=== PATIENT | male | born 1960 | race Caucasian/White ===

== ENCOUNTER 2021-06-03 07:34 | Outpatient (REF) | payer OTHER, SELFPAY ==
[2021-06-03 08:10] LABS: MANUAL DIFF FLAG NO
[2021-06-03 08:14] LABS: Basophils Absolute Auto 0.1 X10*3/uL (0.0-0.2); Eosinophils Absolute Auto 0.2 X10*3/uL (0.0-0.4); Eosinophils Percent Auto 3.3 % (0-4); Hematocrit 45.5 % (42-52); Hemoglobin 15.6 g/dl (14.0-18.0); Imm Gran Abs Auto 0.03 X10*3/uL (0.00-0.03); Imm Gran Pct Auto 0.5 % (0.0-0.4); Lymphocytes Absolute Auto 2.3 X10*3/uL (1.2-4.9); Lymphocytes Percent Auto 35.8 % (20-40); Mean Corpuscular HGB Conc 34.3 g/dl (31.0-36.0); Mean Corpuscular Hemoglobin 28.3 pg (27.0-33.0); Mean Corpuscular Volume 82.4 fL (80-98); Mean Platelet Volume 9.6 fL (9.4-12.4); Monocytes Absolute Auto 0.5 X10*3/uL (0.1-1.2); Monocytes Percent Auto 8.2 % (2-11); Neutrophils Absolute Auto 3.2 X10*3/uL (2.0-8.3); Neutrophils Percent Auto 51.2 % (45-73); Platelet Count 199 X10*3/uL (160-400); Red Blood Count 5.52 X10*6/uL (4.60-5.80); Red Cell Distribution Width 13.4 % (11.0-16.0); White Blood Count 6.3 X10*3/uL (4.8-10.8)
[2021-06-03 08:15] LABS: Glucose Urine UA 100 MG/DL (NEG); Leukocyte Esterase Urine NEG (NEG); Nitrite Urine NEG (NEG); PH 5.5 (5.0-8.0); Specific Gravity - Urine 1.025 (1.005-1.025); Urine Blood NEG (NEG); Urine Ketones NEG (NEG); Urine Protein NEG (NEG-TRACE)
[2021-06-03 08:19] LABS: Appearance Urine CLEAR; Color Urine YELLOW
[2021-06-03 08:38] LABS: Alanine Aminotransferase 18 U/L (0-40); Albumin Level 4.3 g/dL (3.5-5.0); Alkaline Phosphatase 78 U/L (39-117); Anion Gap 12 (12-20); Aspartate Amino Transferase 26 U/L (5-37); Bilirubin Total 0.7 mg/dL (0.0-1.0); Blood Urea Nitrogen 13 mg/dL (9-16); Calcium 9.3 mg/dL (8.4-10.2); Carbon Dioxide 28 mmol/L (22-29); Chloride 101 mmol/L (96-108); Cholesterol 176 mg/dL; Estimated Glomerular Filt Rate > 60; Glucose Fasting 218 mg/dL (60-99); HDL Cholesterol 30 mg/dL; LDL Cholesterol Calculated 101 mg/dl; Potassium 4.6 mmol/L (3.3-5.1); Sodium 136 mmol/L (135-145); Total Protein 6.9 g/dL (6.5-8.0); Triglycerides 225 mg/dL
[2021-06-03 08:43] LABS: Estimated Average Glucose 223 mg/dL; Hemoglobin A1c % 9.4 %
[2021-06-03 08:58] LABS: TSH reflex Free T4 1.28 uIU/mL (0.32-4.0)
== END 2021-06-03 07:35 | disposition home or self-care (01) ==
LOC: HO.LAB 07:34
PROVIDERS: PCP Internal Medicine; Visit Provider Internal Medicine
DX: I10 Essential (primary) hypertension (principal); E66.9 Obesity, unspecified; E78.5 Hyperlipidemia, unspecified; R73.01 Impaired fasting glucose
CPT/HCPCS: 36415; 80053; 80061; 81003; 83036; 84443; 85025

== ENCOUNTER 2021-11-10 09:26 | Outpatient (REF) | payer OTHER, SELFPAY ==
[2021-11-10 12:27] LABS: MANUAL DIFF FLAG NO
[2021-11-10 12:29] LABS: Basophils Absolute Auto 0.1 X10*3/uL (0.0-0.2); Basophils Percent Auto 0.9 % (0-2); Eosinophils Absolute Auto 0.5 X10*3/uL (0.0-0.4); Eosinophils Percent Auto 6.2 % (0-4); Hematocrit 47.1 % (42.0-52.0); Hemoglobin 16.4 g/dl (14.0-18.0); Imm Gran Abs Auto 0.05 X10*3/uL (0.00-0.03); Imm Gran Pct Auto 0.6 % (0.0-0.4); Lymphocytes Absolute Auto 2.8 X10*3/uL (1.2-4.9); Lymphocytes Percent Auto 34.7 % (20-40); Mean Corpuscular HGB Conc 34.8 g/dl (31.0-36.0); Mean Corpuscular Hemoglobin 28.6 pg (27.0-33.0); Mean Corpuscular Volume 82.2 fL (80.0-98.0); Mean Platelet Volume 10.1 fL (9.4-12.4); Monocytes Absolute Auto 0.6 X10*3/uL (0.1-1.2); Monocytes Percent Auto 7.6 % (2-11); Platelet Count 227 X10*3/uL (160-400); Red Blood Count 5.73 X10*6/uL (4.60-5.80); Red Cell Distribution Width 13.1 % (11.0-16.0); White Blood Count 7.9 X10*3/uL (4.8-10.8)
[2021-11-10 12:40] LABS: Estimated Average Glucose 203 mg/dL; Hemoglobin A1c % 8.7 %
[2021-11-10 12:41] LABS: Appearance Urine CLEAR; Color Urine YELLOW; Glucose Urine UA NEG (NEG); Leukocyte Esterase Urine NEG (NEG); Nitrite Urine NEG (NEG); PH 6.5 (5.0-8.0); Urine Blood NEG (NEG); Urine Ketones NEG (NEG); Urine Protein NEG (NEG-TRACE)
[2021-11-10 12:46] LABS: Alanine Aminotransferase 25 U/L (0-40); Albumin Level 4.5 g/dL (3.5-5.0); Alkaline Phosphatase 72 U/L (39-117); Anion Gap 11 (12-20); Aspartate Amino Transferase 24 U/L (5-37); Bilirubin Total 0.7 mg/dL (0.0-1.0); Blood Urea Nitrogen 14 mg/dL (9-16); Calcium 9.9 mg/dL (8.4-10.2); Carbon Dioxide 30 mmol/L (22-29); Chloride 97 mmol/L (96-108); Cholesterol 192 mg/dL; Estimated Glomerular Filt Rate > 60; Glucose Fasting 156 mg/dL (60-99); HDL Cholesterol 35 mg/dL; LDL Cholesterol Calculated 99 mg/dl; Potassium 4.3 mmol/L (3.3-5.1); Sodium 134 mmol/L (135-145); Total Protein 7.3 g/dL (6.5-8.0); Triglycerides 290 mg/dL
[2021-11-10 12:55] LABS: Creatinine Urine 43.11 mg/dL; Microalbum/Creatinine Ratio Ur 13.9 ug/mg cr
[2021-11-10 13:07] LABS: TSH reflex Free T4 2.32 uIU/mL (0.32-4.0)
== END 2021-11-10 09:27 | disposition home or self-care (01) ==
LOC: HO.HMGCLDS 09:26
PROVIDERS: PCP Internal Medicine; Visit Provider Internal Medicine
DX: E78.00 Pure hypercholesterolemia, unspecified (principal); E11.9 Type 2 diabetes mellitus without complications; I10 Essential (primary) hypertension
CPT/HCPCS: 36415; 80053; 80061; 81003; 82043; 83036; 84443; 85025

== ENCOUNTER 2022-03-07 09:50 | Outpatient (REF) | payer OTHER, SELFPAY ==
[2022-03-07 11:34] LABS: Appearance Urine CLEAR; Color Urine YELLOW; Glucose Urine UA NEG (NEG); Leukocyte Esterase Urine NEG (NEG); Nitrite Urine NEG (NEG); PH 5.5 (5.0-8.0); Urine Blood NEG (NEG); Urine Ketones NEG (NEG); Urine Protein NEG (NEG-TRACE)
[2022-03-07 11:35] LABS: MANUAL DIFF FLAG NO
[2022-03-07 11:55] LABS: Estimated Average Glucose 235 mg/dL; Hemoglobin A1c % 9.8 %
[2022-03-07 11:56] LABS: Basophils Absolute Auto 0.1 X10*3/uL (0.0-0.2); Basophils Percent Auto 0.8 % (0-2); Eosinophils Absolute Auto 0.4 X10*3/uL (0.0-0.4); Eosinophils Percent Auto 5.4 % (0-4); Hematocrit 46.6 % (42.0-52.0); Hemoglobin 16.1 g/dl (14.0-18.0); Imm Gran Abs Auto 0.03 X10*3/uL (0.00-0.03); Imm Gran Pct Auto 0.4 % (0.0-0.4); Lymphocytes Absolute Auto 2.7 X10*3/uL (1.2-4.9); Lymphocytes Percent Auto 36.5 % (20-40); Mean Corpuscular HGB Conc 34.5 g/dl (31.0-36.0); Mean Corpuscular Volume 81.2 fL (80.0-98.0); Monocytes Absolute Auto 0.7 X10*3/uL (0.1-1.2); Monocytes Percent Auto 8.7 % (2-11); Neutrophils Absolute Auto 3.6 x10*3/uL (2.0-8.3); Neutrophils Percent Auto 48.2 % (45-73); Platelet Count 245 X10*3/uL (160-400); Red Blood Count 5.74 X10*6/uL (4.60-5.80); Red Cell Distribution Width 13.4 % (11.0-16.0); White Blood Count 7.5 X10*3/uL (4.8-10.8)
[2022-03-07 12:15] LABS: TSH reflex Free T4 2.27 uIU/mL (0.32-4.0); Vitamin D 25-OH Total 29.9 ng/mL (>30)
[2022-03-07 12:19] LABS: Alanine Aminotransferase 21 U/L (0-40); Albumin Level 4.2 g/dL (3.5-5.0); Alkaline Phosphatase 74 U/L (39-117); Anion Gap 13 (12-20); Aspartate Amino Transferase 24 U/L (5-37); Bilirubin Total 0.7 mg/dL (0.0-1.0); Blood Urea Nitrogen 19 mg/dL (9-16); Calcium 9.6 mg/dL (8.4-10.2); Carbon Dioxide 26 mmol/L (22-29); Chloride 98 mmol/L (96-108); Cholesterol 187 mg/dL; Estimated Glomerular Filt Rate > 60; Glucose Fasting 200 mg/dL (60-99); HDL Cholesterol 30 mg/dL; LDL Cholesterol Calculated 97 mg/dl; Sodium 133 mmol/L (135-145); Triglycerides 303 mg/dL
[2022-03-07 12:59] LABS: Creatinine Urine 61.85 mg/dL; Microalbum/Creatinine Ratio Ur 9.7 ug/mg cr
== END 2022-03-07 09:51 | disposition home or self-care (01) ==
LOC: HO.HMGCLDS 09:50
PROVIDERS: PCP Internal Medicine; Visit Provider Internal Medicine
DX: E55.9 Vitamin D deficiency, unspecified (principal); I10 Essential (primary) hypertension; E78.00 Pure hypercholesterolemia, unspecified; E11.9 Type 2 diabetes mellitus without complications
CPT/HCPCS: 36415; 80053; 80061; 81003; 82043; 82306; 83036; 84443; 85025

== ENCOUNTER → 2022-06-29 09:08 | Outpatient (BNVA) | payer SELFPAY | PROVIDERS: PCP Internal Medicine; Visit Provider Internal Medicine | DX: Z02.79 Encounter for issue of other medical certificate (principal) ==

== ENCOUNTER → 2022-07-10 11:04 | Outpatient (BNVA) | payer OTHER, SELFPAY | PROVIDERS: PCP Internal Medicine; Visit Provider Dietitian, Registered | DX: E11.65 Type 2 diabetes mellitus with hyperglycemia (principal); Z71.3 Dietary counseling and surveillance; Z87.891 Personal history of nicotine dependence | CPT/HCPCS: 97802 ==

== ENCOUNTER 2022-11-06 08:11 | Outpatient (REF) | payer OTHER, SELFPAY ==
[2022-11-06 11:11] LABS: MANUAL DIFF FLAG NO
[2022-11-06 11:20] LABS: Appearance Urine Clear; Color Urine Yellow; Glucose Urine UA Negative (Negative); Leukocyte Esterase Urine Negative (Negative); Nitrite Urine Negative (Negative); Urine Blood Negative (Negative); Urine Ketones Negative (Negative); Urine Protein Negative (Neg-Trace)
[2022-11-06 11:26] LABS: Basophils Absolute Auto 0.1 X10*3/uL (0.0-0.2); Basophils Percent Auto 0.9 % (0-2); Eosinophils Absolute Auto 0.3 X10*3/uL (0.0-0.4); Eosinophils Percent Auto 4.6 % (0-4); Hemoglobin 15.5 g/dl (14.0-18.0); Imm Gran Abs Auto 0.04 X10*3/uL (0.00-0.03); Imm Gran Pct Auto 0.6 % (0.0-0.4); Lymphocytes Absolute Auto 2.4 X10*3/uL (1.2-4.9); Lymphocytes Percent Auto 33.9 % (20-40); Mean Corpuscular HGB Conc 34.4 g/dl (31.0-36.0); Mean Corpuscular Hemoglobin 28.4 pg (27.0-33.0); Mean Corpuscular Volume 82.6 fL (80.0-98.0); Mean Platelet Volume 10.1 fL (9.4-12.4); Monocytes Absolute Auto 0.5 X10*3/uL (0.1-1.2); Monocytes Percent Auto 6.9 % (2-11); Neutrophils Absolute Auto 3.7 x10*3/uL (2.0-8.3); Neutrophils Percent Auto 53.1 % (45-73); Platelet Count 218 X10*3/uL (160-400); Red Blood Count 5.45 X10*6/uL (4.60-5.80); Red Cell Distribution Width 13.1 % (11.0-16.0); White Blood Count 6.9 X10*3/uL (4.8-10.8)
[2022-11-06 11:57] LABS: Estimated Average Glucose 203 mg/dL; Hemoglobin A1c % 8.7 %
[2022-11-06 12:05] LABS: Creatinine Urine 58.04 mg/dL; Microalbum/Creatinine Ratio Ur 29.2 ug/mg cr
[2022-11-06 13:21] LABS: Alanine Aminotransferase 27 U/L (0-40); Albumin Level 4.1 g/dL (3.5-5.0); Alkaline Phosphatase 70 U/L (39-117); Anion Gap 11 (12-20); Aspartate Amino Transferase 24 U/L (5-37); Bilirubin Total 0.4 mg/dL (0.0-1.0); Blood Urea Nitrogen 18 mg/dL (9-16); Calcium 9.2 mg/dL (8.4-10.2); Carbon Dioxide 27 mmol/L (22-29); Chloride 98 mmol/L (96-108); Cholesterol 170 mg/dL; Estimated Glomerular Filt Rate > 60; Glucose Fasting 201 mg/dL (60-99); HDL Cholesterol 33 mg/dL; LDL Cholesterol Calculated 76 mg/dl; Potassium 4.3 mmol/L (3.3-5.1); Sodium 132 mmol/L (135-145); Total Protein 6.7 g/dL (6.5-8.0); Triglycerides 307 mg/dL; Vitamin D 25-OH Total 26.7 ng/mL (>30)
== END 2022-11-06 08:12 | disposition home or self-care (01) ==
LOC: HO.HMGCLDS 08:11
PROVIDERS: PCP Internal Medicine; Visit Provider Internal Medicine
DX: E78.00 Pure hypercholesterolemia, unspecified (principal); E11.9 Type 2 diabetes mellitus without complications; E55.9 Vitamin D deficiency, unspecified; I10 Essential (primary) hypertension
CPT/HCPCS: 36415; 80053; 80061; 81003; 82043; 82306; 83036; 84443; 85025

== ENCOUNTER 2023-01-11 10:36 | Outpatient (REF) | payer OTHER, MEDICAID, SELFPAY ==
--- NOTE | 2023-01-11 16:48 | MHC.AU.HA1 ---
Hearing Aid Evaluation Date of Visit: 01/11/23 Historical Information: Description of Hearing: Within normal through 500 Hz steeply sloping to profound sensorineural hearing loss Summary: Jordi has reportedly had high-frequency hearing loss since he was [age] years old after bijan the measles. However, he has never worn hearing aids. Within the past year, Jordi has noticed increasing difficulty hearing and understanding conversations especially in the presence of background noise. Discussed realistic expectations and limitations of hearing aids including acclimatization period given the length of time he has had unaided hearing loss and the configuration of his hearing loss. Jordi is reportedly now motivated to pursue hearing aids to help ease some of his communication difficulties and hear more environmental sounds as well. Hearing Aid Prescription: Based on the individual?s shared listening needs, communication environments, dexterity, desire for connectivity, and personal preferences, the following prescription for amplification has been made: Right ear: Make, Model, Color: Phonak Audeo L70-R Color: Graphite [place] Battery Size: Rechargeable Insect Control Aide/Slim Tube: 1P Type of Earmold/Dome/CShell/SlimTip: Medium vented dome Left ear: Left ear prescription to be same as Right Hearing Aid above: Abhishek Model, Color: Phonak Audeo L70-R Color: Graphite [place]a Battery Size: Rechargeable Insect Control Aide/Slim Tube: 1P Type of Earmold/Dome/CShell/SlimTip: Medium vented dome Plan of Care: Patient wishes to purchase hearing aids as prescribed Action Taken/Action Needed: Medical Clearance to be requested from PCP/ENT. Hearing Instrument Fitting to be scheduled when materials arrive Primary Diagnosis: H90.3 Bilateral Sensorineural Hearing Loss Signature: Provider: Shane Santana, [facility]
--- NOTE | 2023-01-11 16:49 | MHC.AU.MED ---
Medical Clearance for Hearing Instrumentation Date: 01/11/23 Patient Name: Jordi Bee Date of : 1960 Primary Care Provider: AMAYA Short We have seen your patient on 01/11/23 and have determined that they are a candidate for amplification (See accompanying report). Specifically, they would benefit from: Hearing aid use in both ears There is a statute that addresses Medical Evaluation Requirements prior to fitting a patient with a hearing aid. According to [place] statute 265 CMR:6.03(1), (a) General. Except as provided in 265 CMR 6.03(1)(b), a director of counseling shall not sell a hearing aid unless the prospective user has presented to the director of counseling a written statement signed by a licensed physician that states that the patient's hearing loss has been medically evaluated and the patient may be considered a candidate for a hearing aid. The medical evaluation must have taken place within the preceding six months. Please note: Due to the [place] Statute referenced above, we cannot accept a signature other than that of a licensed physician. TERRAZZO GRINDER and PA signatures cannot be accepted. I am in agreement with the above recommendation. There is no medical contraindication for hearing instrumentation. Physician Signature Date Physician Name (Printed)
== END 2023-01-11 10:37 | disposition home or self-care (01) ==
LOC: HO.SH 10:36
PROVIDERS: Visit Provider Nurse Practitioner Family
DX: H90.3 Sensorineural hearing loss, bilateral (principal)
CPT/HCPCS: 92557; 92591

== ENCOUNTER 2023-03-05 10:56 | Outpatient (REF) | payer OTHER, MEDICAID, SELFPAY | END 2023-03-05 10:57 | disposition home or self-care (01) | LOC: HO.HAP 10:56 | PROVIDERS: Visit Provider Internal Medicine | DX: Z46.1 Encounter for fitting and adjustment of hearing aid (principal); H90.3 Sensorineural hearing loss, bilateral | CPT/HCPCS: V5011; V5020; V5160; V5261 ==

== ENCOUNTER 2023-03-08 10:09 | Outpatient (REF) | payer OTHER, MEDICAID, SELFPAY ==
[2023-03-08 12:03] LABS: Estimated Average Glucose 212 mg/dL
[2023-03-08 12:41] LABS: Alanine Aminotransferase 25 U/L (0-40); Albumin Level 4.3 g/dL (3.5-5.0); Alkaline Phosphatase 70 U/L (39-117); Anion Gap 12 (12-20); Aspartate Amino Transferase 23 U/L (5-37); Bilirubin Total 0.6 mg/dL (0.0-1.0); Blood Urea Nitrogen 26 mg/dL (9-16); Calcium 9.7 mg/dL (8.4-10.2); Carbon Dioxide 26 mmol/L (22-29); Chloride 100 mmol/L (96-108); Cholesterol 178 mg/dL; Estimated Glomerular Filt Rate > 60; Glucose Fasting 154 mg/dL (60-99); HDL Cholesterol 31 mg/dL; LDL Cholesterol Calculated 100 mg/dl; Potassium 4.4 mmol/L (3.3-5.1); Sodium 134 mmol/L (135-145); Total Protein 6.8 g/dL (6.5-8.0); Triglycerides 235 mg/dL; Vitamin D 25-OH Total 34.1 ng/mL (>30)
== END 2023-03-08 10:10 | disposition home or self-care (01) ==
LOC: HO.HMGCLDS 10:09
PROVIDERS: PCP Internal Medicine; Visit Provider Nurse Practitioner Family
DX: I10 Essential (primary) hypertension (principal); E11.9 Type 2 diabetes mellitus without complications; E55.9 Vitamin D deficiency, unspecified
CPT/HCPCS: 36415; 80053; 80061; 82306; 83036

== ENCOUNTER → 2023-03-12 10:10 | Outpatient (BNVA) | payer OTHER, MEDICAID, SELFPAY | PROVIDERS: PCP Internal Medicine; Visit Provider Dietitian, Registered | DX: E11.65 Type 2 diabetes mellitus with hyperglycemia (principal); Z71.3 Dietary counseling and surveillance | CPT/HCPCS: 97803 ==

== ENCOUNTER 2023-04-30 07:21 | Outpatient (REF) | payer OTHER, SELFPAY ==
[2023-04-30 11:51] LABS: Estimated Average Glucose 137 mg/dL; Hemoglobin A1c % 6.4 %
== END 2023-04-30 07:22 | disposition home or self-care (01) ==
LOC: HO.HMGCLDS 07:21
PROVIDERS: PCP Internal Medicine; Visit Provider Nurse Practitioner Family
DX: E11.9 Type 2 diabetes mellitus without complications (principal)
CPT/HCPCS: 36415; 83036

== ENCOUNTER → 2023-05-01 10:05 | Outpatient (BNVA) | payer OTHER, SELFPAY | PROVIDERS: PCP Internal Medicine; Visit Provider Dietitian, Registered | DX: E11.65 Type 2 diabetes mellitus with hyperglycemia (principal) | CPT/HCPCS: 97803 ==

== ENCOUNTER 2023-07-26 09:47 | Outpatient (AMB) | payer OTHER, SELFPAY ==
--- NOTE | 2023-07-26 09:52 | MHC.PC.OV ---
Vital Signs 07/26/23 09:53 Height 5 ft 10 in Weight 238 lb 6 oz BMI 34.2 BP 122/84 Blood Pressure Location Lt brachial Position Sitting Pulse 92 Pulse Source Pulse Oximeter Pulse Oximetry (%) 98 Oxygen Delivery Method Room Air Intake Visit Reasons: DM,HTN, hyperlipidemia Die Maintenance Required: No Accompanied by: Self / Same As Patient Allergies No Known Allergies Allergy (Verified 07/26/23 10:08) Medication List - Last Reconciled 07/26/23 by Dimas Gaspar MD blood sugar diagnostic (FreeStyle Lite Strips) As directed once a day blood-glucose meter (FreeStyle Lite Meter kit) As directed blood-glucose meter,continuous (Dexcom G7 District Director) As directed blood-glucose sensor (Dexcom G7 Sensor device) As directed bupropion HCl 150 mg PO QAM 90 days chlorthalidone 25 mg PO QAM cholecalciferol (vitamin D3) 25 mcg PO DAILY Dexcom G7 District Director (blood-glucose meter,continuous) As directed NS Dexcom G7 Sensor (blood-glucose sensor) As directed NS glipizide ER 2.5 mg PO DAILY lancets (FreeStyle Lancets) As directed lisinopril 40 mg PO DAILY metformin ER 1,000 mg (2 x 500 mg) PO BID 90 days semaglutide (Rybelsus) 3 mg PO DAILY 30 days Tobacco use date assessed: 07/26/23 Dental Screening Dental Screen Date: 07/26/23 Did you have a dental visit in the last 12 months?: No Did you have a dental problem in the last 6 months where you did not have access to dental care?: No Was dental information given to patient?: No HPI DM,HTN, hyperlipidemia HPI Details Patient comes in today for his follow up visit States that he feels okay He denies any headaches or dizziness Denies any chest pains, no SOB No nausea/vomiting, no abdominal pain No change in bowel habits noted Was not able to get his follow up labs done yet; states that he will try to get them done tomorrow morning [facility] Medical History Mixed hyperlipidemia Diabetes mellitus Obesity (BMI 30-39.9) Anxiety Insomnia Lumbar degenerative disc disease Cervical spondylosis Benign essential hypertension Surgical History History of arthroplasty of right hip Family History Father Medical history unknown Mother Colon cancer Maternal Grandfather Myocardial infarction Social History Housing: House Alcohol intake: never Patient Tobacco Use Status: Former Tobacco user e-Cigarette/Vaping Use: Never Used Second Hand Smoke Exposure: Yes service: No Current occupational status: employed Current occupation: school health assistant Cognitive needs: No Hearing needs: Yes (hearing aide) Vision needs: Yes Questionnaire PHQ-9 Over the last 2 weeks, how often have you been bothered by any of the following problems? 1. Little interest or pleasure in doing things: not at all 2. Feeling down, depressed, or hopeless: not at all 3. Trouble falling or staying asleep, or sleeping too much: not at all 4. Feeling tired or having little energy: not at all 5. Poor appetite or overeating: not at all 6. Feeling bad about yourself - or that you are a failure or have let yourself or your family down: not at all 7. Trouble concentrating on things, such as reading the newspaper or watching television: not at all 8. Moving or speaking so slowly that other people could have noticed. Or the opposite - being so fidgety or restless that you have been moving around a lot more than usual: not at all 9. Thoughts that you would be better off or of hurting yourself in some way: not at all Total score: 0 Depression Screening Interpretation: Negative 26972 - PHQ-9 Billing: Yes Source: Developed by Drs. Abdias Villatoro, Naomie Chandra, North Feldman and colleagues, with an educational jayde from [employer]. Thrive Questionnaire Date Thrive assessed: 07/26/23 I am a: Patient What is your living situation today?: I have a steady place to live Within the past 12 months, did the food you bought not last and you didn't have the money to get more?: Never true Within the past 12 months, did you worry whether your food would run out before you got money to buy more?: Never true Do you have trouble paying for medicines?: No Do you have trouble getting transportation to medical appointments?: No Do you have trouble paying your heating and electricity bill?: No Do you have trouble taking care of your child, family member or friend?: No Do you have trouble with day-to-day activities such as bathing, preparing meals, shopping, managing finances, etc.?: No Are you currently unemployed and looking for a job?: No Are you interested in more education?: No Please select the resources that you would like help with: None Currently or been in a relationship where the following occur: no concerns reported AUDIT C Alcohol Use Questionnaire (AUDIT-C) 1. How often do you have a drink containing alcohol?: Never Total Score: 0 Score Reviewed/Action Taken: Yes RAMONA-7 AMB Questionnaire RAMONA-7 Date RAMONA - 7 assessed: 07/26/23 Feeling nervous, anxious, or on edge: 0 = Not at all Not being able to stop or control worryin = Not at all Worrying too much about different things: 0 = Not at all Trouble relaxin = Not at all Being so restless that it is hard to sit still: 0 = Not at all Becoming easily annoyed or irritable: 0 = Not at all Feeling afraid as if something awful might happen: 0 = Not at all Total RAMONA-7 score (0-4 normal; 5-9 mild; 10-14 moderate; 15-21 severe): 0 Source: Developed by Drs. Abdias Villatoro, Naomie Chandra, North Feldman and colleagues, with an educational jayde from [employer]. Review of Systems Const Denies chills, Denies fatigue, Denies fever(s) and Denies headache(s) ENT Denies dysphagia, Denies dizziness, Denies otalgia, Denies headache(s), Denies neck pain, Denies odynophagia and Denies sore throat Card Denies chest pain, Denies palpitations and Denies dyspnea Resp Denies cough and Denies dyspnea GI Denies abdominal pain, Denies constipation, Denies dysphagia, Denies heartburn, Denies diarrhea, Denies nausea, Denies odynophagia and Denies vomiting Denies dysuria, Denies nocturia and Denies urinary frequency Musc Denies neck pain Neuro Denies dizziness and Denies headache(s) Endo Denies fatigue and Denies palpitations Physical exam (Primary Care) Vital Signs: Last Vital Signs Pulse 92 07/26/23 09:53 BP 122/84 07/26/23 09:53 Pulse Ox 98 07/26/23 09:53 Oxygen Delivery Method Room Air 07/26/23 09:53 BMI result Body Mass Index 34.2 Tobacco/Smoking Status: Tobacco use Status Tobacco use date assessed 07/26/23 07/26/23 09:55 Patient Tobacco Use Status Former Tobacco user 07/26/23 09:55 e-Cigarette/Vaping Use Never Used 07/26/23 09:55 PHQ-9: PHQ-9 Score PHQ-9: Total score 0 07/26/23 10:15 Depression Screening Interpretation: Negative Thrive Assessment: Date of Thrive Assessment Date Thrive assessed 07/26/23 07/26/23 09:55 Currently or been in a relationship where the following occur: no concerns reported Const General: no acute distress and alert HENMT Ears: TM's normal bilaterally and EAC's normal Throat: Yes posterior oropharynx normal and Yes tonsils normal (no TP congestion) Neck Neck: Yes no lymphadenopathy and Yes supple Resp Auscultation: clear to auscultation bilaterally, no rales and no wheezes Cardio Rate: regular rate Rhythm: regular rhythm Heart sounds: no murmurs GI Palpation (GI): Soft to palpation, nontender and No hepatosplenomegaly present Skin General skin exam: no rashes or lesions noted Extrem General: Yes no clubbing, cyanosis or edema Results AMB Hemoglobin A1c AMB Hemoglobin A1c 7.2 % Last Edit by Lakhwinder Gomez on 07/26/23 10:15 Results Reviewed Results Reviewed: Laboratory Last Values Hgb A1c (Clinic) 7.2 % (4.0-6.0) H 07/26/23 10:14 Assessment and Plan Assessment & Plan (1) Diabetes mellitus: Code(s): E11.9 - Type 2 diabetes mellitus without complications Qualifiers: Diabetes mellitus complication status: with hyperglycemia Diabetes mellitus assisted insulin use: without assisted use Diabetes mellitus type: type 2 Qualified Code(s): E11.65 - Type 2 diabetes mellitus with hyperglycemia Plan: In-office HgbA1c done today is at 7.2% (HgbA1c was at 6.4% back in April 2023) - goal is at least 7.0% or less Reinforced diabetic diet - patient admits to poor compliance with his diet again lately; states that he has a tendency to stress eat sometimes Continue Metformin 1000 mg BID, Glipizide ER 2.5 mg QD and Rybelsus 3 mg QD He is also now following up with diabetic library technical assistant and he has a follow up appointment with her again next month on 08/22/23 He would like to get a CGM (Dexcom) to help manage and monitor his blood sugar better - this was previously denied by his insurance but states that he has a different diabetes management insurance that he has through his work (called [employer]) that should be able to cover his diabetic supplies New Rx sent - patient is advised that he needs to inform his pharmacy that they should run his CGM Rx through this and NOT his regular health insurance (2) Benign essential hypertension: Code(s): I10 - Essential (primary) hypertension Plan: Reinforced low-sodium diet -? goal is systolic BP of at least 120 to 130 mm or less Continue Chlorthalidone 25 mg once a day in AM and Lisinopril 40 mg QD (3) Mixed hyperlipidemia: Code(s): E78.2 - Mixed hyperlipidemia Plan: States that he will try to get his follow up labs done tomorrow morning; was not able to get them in time for today's visit Reinforced low cholesterol diet Will recheck his labs and fasting lipids again in 4 months for follow up Advised again that based on current recommendations and guidelines, statins are indicated in diabetics irregardless of cholesterol status unless contraindicated or not tolerated so we will consider starting him on some statin at his next follow-up visit (4) Lumbar degenerative disc disease: Code(s): M51.36 - Other intervertebral disc degeneration, lumbar region Plan: Reinforced activity and weight-lifting restrictions (5) Cervical spondylosis: Code(s): M47.812 - Spondylosis without myelopathy or radiculopathy, cervical region Plan: States that his neck symptoms remain tolerable (6) Insomnia: Code(s): G47.00 - Insomnia, unspecified Qualifiers: Insomnia type: unspecified Qualified Code(s): G47.00 - Insomnia, unspecified Plan: Sleep hygiene reinforced 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 and this has improved a lot now that he is working during the day and no longer works the night shifts (7) Anxiety: Code(s): F41.9 - Anxiety disorder, unspecified Plan: Continue Bupropion XL 150 mg QD; have also advised patient that if he continues to stress eat frequently, raising the dose of his Bupropion XL can help Follow-up with counselor/therapist as scheduled (8) Obesity (BMI 30-39.9): Code(s): E66.9 - Obesity, unspecified Plan: Reinforced diet/exercise as tolerated/lose weight Per request, he has been referred to [facility] Weight Management Program in the past Plan Follow up in 4 months Orders: Orders AMB Hemoglobin A1c Today Z13.9 - Encounter for screening, unspecified Comprehensive [place]. Panel Fast 4 Months E78.00 - Pure hypercholesterolemia, unspecified Microalbumin, Random (w Creat) 4 Months E11.9 - Type 2 diabetes mellitus without complications UA CC w/rflx Micro + Cult 4 Months R30.0 - Dysuria Complete Blood Count Auto Diff 4 Months I10 - Essential (primary) hypertension Lipid Panel 4 Months E78.00 - Pure hypercholesterolemia, unspecified Hemoglobin A1c 4 Months E11.9 - Type 2 diabetes mellitus without complications TSH reflex Free T4 4 Months E78.00 - Pure hypercholesterolemia, unspecified Vitamin D 25-OH Total 4 Months E55.9 - Vitamin D deficiency, unspecified Medications: Refilled blood-glucose meter,continuous (Dexcom G7 District Director) As directed 2 ea 5RF E11.65 - Type 2 diabetes mellitus with hyperglycemia blood-glucose sensor (Dexcom G7 Sensor device) As directed 2 ea 5RF E11.65 - Type 2 diabetes mellitus with hyperglycemia Coding Level of Care Code Est Pt Level 4 (41578) Diagnoses Type 2 diabetes mellitus with hyperglycemia, without long-term current use of insulin E11.65 Diabetes mellitus complication status: with hyperglycemia Diabetes mellitus assisted insulin use: without keno terminal operator use Diabetes mellitus type: type 2 Benign essential hypertension I10 Mixed hyperlipidemia E78.2 Lumbar degenerative disc disease M51.36 Cervical spondylosis M47.812 Insomnia, unspecified type G47.00 Insomnia type: unspecified Anxiety F41.9 Obesity (BMI 30-39.9) E66.9
[2023-07-26 09:53] VITALS: BP 122/84; PULSE 92; O2SAT 98; BMI 34.2
== END 2023-07-26 10:47 | disposition home or self-care (01) ==
PROVIDERS: PCP Internal Medicine; Visit Provider Internal Medicine
DX: E11.65 Type 2 diabetes mellitus with hyperglycemia (principal); I10 Essential (primary) hypertension; F41.9 Anxiety disorder, unspecified; E78.2 Mixed hyperlipidemia; M51.36 Other intervertebral disc degeneration, lumbar region; M47.812 Spondylosis without myelopathy or radiculopathy, cervical region; G47.00 Insomnia, unspecified; E66.9 Obesity, unspecified
CPT/HCPCS: 83036; 99214

== ENCOUNTER 2023-07-27 09:13 | Outpatient (REF) | payer OTHER, SELFPAY ==
[2023-07-27 11:11] LABS: MANUAL DIFF FLAG NO
[2023-07-27 11:13] LABS: Basophils Absolute Auto 0.1 X10*3/uL (0.0-0.2); Eosinophils Absolute Auto 0.3 X10*3/uL (0.0-0.4); Eosinophils Percent Auto 4.9 % (0-4); Hematocrit 44.3 % (42.0-52.0); Hemoglobin 15.1 g/dl (14.0-18.0); Imm Gran Abs Auto 0.02 X10*3/uL (0.00-0.03); Imm Gran Pct Auto 0.3 % (0.0-0.4); Lymphocytes Absolute Auto 2.3 X10*3/uL (1.2-4.9); Lymphocytes Percent Auto 36.5 % (20-40); Mean Corpuscular HGB Conc 34.1 g/dl (31.0-36.0); Mean Corpuscular Hemoglobin 28.5 pg (27.0-33.0); Mean Corpuscular Volume 83.6 fL (80.0-98.0); Mean Platelet Volume 10.2 fL (9.4-12.4); Monocytes Absolute Auto 0.5 X10*3/uL (0.1-1.2); Monocytes Percent Auto 7.3 % (2-11); Neutrophils Absolute Auto 3.1 x10*3/uL (2.0-8.3); Platelet Count 221 X10*3/uL (160-400); Red Cell Distribution Width 13.2 % (11.0-16.0); White Blood Count 6.3 X10*3/uL (4.8-10.8)
[2023-07-27 11:28] LABS: Appearance Urine Clear; Color Urine Yellow; Glucose Urine UA Negative (Negative); Leukocyte Esterase Urine Negative (Negative); Nitrite Urine Negative (Negative); PH 6.5 (5.0-9.0); Specific Gravity - Urine 1.015 (1.005-1.025); Urine Blood Negative (Negative); Urine Ketones Negative (Negative); Urine Protein Negative (Neg-Trace)
[2023-07-27 11:39] LABS: Alanine Aminotransferase 23 U/L (0-40); Albumin Level 4.2 g/dL (3.5-5.0); Alkaline Phosphatase 62 U/L (39-117); Anion Gap 12 (12-20); Aspartate Amino Transferase 25 U/L (5-37); Bilirubin Total 0.5 mg/dL (0.0-1.0); Blood Urea Nitrogen 22 mg/dL (9-16); Calcium 9.6 mg/dL (8.4-10.2); Carbon Dioxide 25 mmol/L (22-29); Chloride 102 mmol/L (96-108); Cholesterol 157 mg/dL (<200); Estimated Glomerular Filt Rate > 60; Glucose Fasting 146 mg/dL (60-99); HDL Cholesterol 32 mg/dL (>40); LDL Cholesterol Calculated 74 mg/dL (<100); Potassium 4.3 mmol/L (3.3-5.1); Sodium 135 mmol/L (135-145); Total Protein 6.9 g/dL (6.5-8.0); Triglycerides 258 mg/dL (<150)
[2023-07-27 11:56] LABS: TSH reflex Free T4 1.63 uIU/mL (0.32-4.0); Vitamin D 25-OH Total 37.3 ng/mL (>30)
[2023-07-27 12:01] LABS: Creatinine Urine 65.08 mg/dL; Microalbumin Urine < 5.0 mg/L
== END 2023-07-27 09:14 | disposition home or self-care (01) ==
LOC: HO.HMGCLDS 09:13
PROVIDERS: PCP Internal Medicine; Visit Provider Internal Medicine
DX: E78.00 Pure hypercholesterolemia, unspecified (principal); E55.9 Vitamin D deficiency, unspecified; I10 Essential (primary) hypertension; E11.9 Type 2 diabetes mellitus without complications; R30.0 Dysuria
CPT/HCPCS: 36415; 80053; 80061; 81003; 82043; 82306; 82570; 84443; 85025

== ENCOUNTER 2025-10-29 12:58 | Emergency (ER) | payer OTHER, SELFPAY ==
--- OUTSIDE RECORDS SUMMARY | 2024-06-11 10:30 | XMS_ITS ---
Author Organization [facility], [place] Address [address] [facility] [address] [place] [address] Care Team Providers Care Medical Genetics Director Name Role Phone Migration, Provider Unavailable Unavailable REASON FOR VISIT Follow-up Appt Encounters Encounter Location Date Provider Diagnosis [address] [place] [address] 06/11/2024 Provider Migration Plan Of Treatment No Information Progress Notes * SUKHWINDER HAHNDOB:1960 (65 yo M)Acc No.[id number]:06/11/2024 Progress Notes Patient: Lalo CASTELLANOSBRYONSUKHWINDER Provider: José Miguel bazan Migration :1960 A ge:63 Y S ex:Male Date:06/11/2024 Address:[address] [place] [address] Subjective: * Chief Complaints: * F ollow-up Appt * Ocular Surgical History: Objective: Vision Examination: * Electronic signature of Prov ider Migration on 10/29/2025 at 05:37 PM EST Sign off status: Pending * Provider: José Miguel bazan Migration Date: 0 06/11/2024 Generated for Geoff mejia/Jesse/eTaronsmitting on: 12/30/2024 05:37 PM EST
--- OUTSIDE RECORDS SUMMARY | 2024-10-27 05:00 | XMS_ITS ---
Author Organization [facility], [place] Address [address] [facility] [address] [place] [address] Care Team Providers Care Wireless Development Manager Name Role Phone Migration, Provider Unavailable Unavailable REASON FOR VISIT CPX Encounters Encounter Location Date Provider Diagnosis [facility], [address] [place] [phone] 10/27/2024 Provider Migration Plan Of Treatment No Information Progress Notes * SUKHWINDER HAHNDOB:1960 (65 yo M)Acc No.[id number]:10/27/2024 Progress Notes Patient: Lalo CASTELLANOSJULIETASUKHWINDER VINES Provider: José Miguel bazan Migration :1960 A ge:64 Y S ex:Male Date:10/27/2024 Address:[address] [place], [place] [phone] Subjective: * Chief Complaints: * C PX * Ocular Surgical History: Objective: Vision Examination: * Electronic signature of Prov ider Migration on 10/29/2025 at 05:37 PM EST Sign off status: Pending * Provider: José Miguel bazan Migration Date: 12/28/2023 Generated for Geoff mejia/Jesse/eTaronsmitting on: 12/30/2024 05:37 PM EST
--- OUTSIDE RECORDS SUMMARY | 2025-02-25 06:00 | XMS_ITS ---
Author Organization [facility], [place] Address [address] [address] [facility] [address] [place] [address] Care Team Providers Care Docket Specialist Name Role Phone Yvon Coffey Unavailable [phone] REASON FOR VISIT Follow-up Appt Encounters Encounter Location Date Provider Diagnosis [facility], [address] [place] [phone] 02/25/2025 Yvon Coffey Plan Of Treatment No Information Progress Notes * MARTELLMOHINDER SUKHWINDERDOB:1960 (65 yo M)Acc No.[id number]:02/25/2025 Progress Notes Patient: SUKHWINDER CASTILLO Provider: Maylin GALEANA :1960 A ge:64 Y S ex:Male Date:02/25/2025 Address:[address] [place], [place] [phone] Subjective: * Chief Complaints: * F ollow-up Appt * Ocular Surgical History: Objective: Vision Examination: * Electronic signature of Pan Coffey PA-C on 10/29/2025 at 05:36 PM EST Sign off status: Pending * Provider: Maylin GALEANA Date: 0 02/25/2025 Generated for Rayrayi jackie/Jesse/eTransmitting on: 1 12/30/2024 05:36 PM EST
--- OUTSIDE RECORDS SUMMARY | 2025-03-16 05:45 | XMS_ITS ---
Author Organization [facility], [place] Address [address] [facility] [facility] [address] [place] [address] Care Team Providers Care Cardiac Tech Name Role Phone Yvon Coffey Unavailable [phone] REASON FOR VISIT Follow-up Appt Encounters Encounter Location Date Provider Diagnosis [facility], [address] [place] [address] 03/16/2025 Yvon Coffey Plan Of Treatment No Information Progress Notes * MARTELLSUKHWINDER VINESDOB:1960 (65 yo M)Acc No.[id number]:03/16/2025 Progress Notes Patient: SUKHWINDER CASTILLO Provider: Maylin GALEANA :1960 A ge:64 Y S ex:Male Date:03/16/2025 Address:[address] [place], [place] [phone] Subjective: * Chief Complaints: * F ollow-up Appt * Ocular Surgical History: Objective: Vision Examination: * Electronic signature of Pan Coffey PA-C on 10/29/2025 at 05:36 PM EST Sign off status: Pending * Provider: Maylin GALEANA Date: 0 03/16/2025 Generated for Rayrayi jackie/Jesse/eTransmitting on: 1 12/30/2024 05:36 PM EST
--- OUTSIDE RECORDS SUMMARY | 2025-04-21 05:30 | XMS_ITS ---
Author Organization [facility] [address] Address [address] [place] [address] Care Team Providers Care Mobile Home Installer Name Role Phone VIVI CHAPPELL Unavailable [phone] Coreen Tovar [phone] Encounters Encounter Location Date Provider Diagnosis [facility] [address] [address] 04/21/2025 Coreen Tovar Plan Of Treatment Next Appt Details Provider Name:VIVI CHAPPELL, 10:00:00 AM, [address], [place], [address], Progress Notes * Jordi BEEDOB:1960 (65 yo M)Acc No.[id number]:04/21/2025 Progress Notes Patient: Jordi Roberson Provider: Ana Tovar PA-C :1960 A ge:64 Y S ex:Male Date:04/21/2025 Address:[address] [place] [address] * Electronic signature of Marsha Tovar PA-C on 10/29/2025 at 05:36 PM EST Sign off status: Pending * Provider: Ana Tovar PA-C Date: 0 04/21/2025 Generated for Printi ng/Faxing/eTransmitting on: 1 12/30/2024 05:36 PM EST
--- OUTSIDE RECORDS SUMMARY | 2025-05-28 05:45 | XMS_ITS ---
Author Organization [facility] [address] Address [address] [place] [address] Care Team Providers Care Bus Assistant Name Role Phone VIVI CHAPPELL Unavailable [phone] BRANDT AVILA Unavailable [phone] REASON FOR VISIT bp check Encounters Encounter Location Date Provider Diagnosis [facility] [address] [place] [address] 05/28/2025 BRANDT AVILA Plan Of Treatment Next Appt Details Provider Name:VIVI CHAPPELL, 10:00:00 AM, [address], [place], [address], Progress Notes * Jordi BEEDOB:1960 (65 yo M)Acc No.[id number]:05/28/2025 Progress Note Patient: Jordi Roberson Provider: Edelmira Avila MD :1960 A ge:64 Y S ex:Male Date:05/28/2025 Address:[address] [place], [place] [phone] Subjective: * Chief Complaints: * B p check Care Plan Details* * Electronic signature of CORTES AVILA MD on 10/29/2025 at 05:37 PM EST Sign off status: Pending * Provider: Edelmira Avila MD Date: 0 05/28/2025 Generated for Printi ng/Faxing/eTransmitting on: 1 12/30/2024 05:37 PM EST
--- OUTSIDE RECORDS SUMMARY | 2025-08-30 04:45 | XMS_ITS ---
Author Organization [facility] [address] Address [address] [place] [address] Care Team Providers Care Distance Learning Coordinator Name Role Phone VIVI CHAPPELL Unavailable [phone] Encounters Encounter Location Date Provider Diagnosis [facility] [address] [place] [address] 08/30/2025 VIVI CHAPPELL Plan Of Treatment Next Appt Details Provider Name:VIVI CHAPPELL, 10:00:00 AM, [address], [place], [address], Progress Notes * Jordi BEEDOB:1960 (65 yo M)Acc No.[id number]:08/30/2025 Progress Notes Patient: Jordi Roberson Provider: Rajiv CHAPPELL PA-C :1960 A ge:65 Y S ex:Male Date:08/30/2025 Address:[address] [place], [place] [phone] Care Plan Details* * Electronic signature of MERARI CHAPPELL PA-C on 10/29/2025 at 05:37 PM EST Sign off status: Pending * Provider: Rajiv CHAPPELL PA-C Date: Generated for Geoff mejia/Jesse/eTransmitting on: 12/30/2024 05:37 PM EST
--- NOTE | ~2025-10-29 | CT_ITS ---
EXAMINATION: CT HEAD WITHOUT CONTRAST CLINICAL INFORMATION: Head strike injury. COMPARISON: None available. TECHNIQUE: Contiguous axial imaging was performed from the skull base to vertex without intravenous administration of contrast. This CT examination was performed using dose optimization techniques as appropriate, variously including the following: *Automated exposure control *Adjustment of mA and/or kV according to patient size (this includes techniques or standardized protocols for targeted exams where dose is matched to indication/reason for exam; i.e. extremities or head) *Use of iterative reconstruction technique DLP: [id number] FINDINGS: There is no acute intra-axial, extra-axial bleed, masses or midline shift. Is no acute infarction evolution. There is no edema. The garcia to white matter differentiation is maintained normal. The lateral ventricles are slightly asymmetrical but normal size and configuration. Bone windows reveal no calvarial fracture or scalp abnormality. There is mild mucoperiosteal thickening of bilateral ethmoid, maxillary, frontal sinuses. There are calcified synovitis in bilateral sphenoid sinuses. Bilateral optic globes, optic nerve and periorbital soft tissues are normal. CT/CT head/brain wo IV con IMPRESSION: No acute intracranial process seen. Bilateral maxillary, ethmoid and frontal chronic sinus inflammatory changes. There are sialoliths in bilateral sphenoid sinuses. Electronically signed by: Jose Ramon Chinchilla MD 10/29/2025 05:20 PM EST
[2025-10-29 13:24] VITALS: BP 160/83; PULSE 87; RESP 18; TEMP 36.6; O2SAT 96; BMI 34.2
[2025-10-29 16:36] VITALS: BP 136/79; PULSE 82; RESP 18; TEMP 36.6; O2SAT 94
--- NOTE | 2025-10-29 16:36 | ED.HEATRA ---
HPI - Head Injury General Chief complaint: Head Injury Stated complaint: head inj Time Seen by Provider: 10/29/25 16:42 Source: patient, RN notes reviewed and old records reviewed Mode of arrival: ambulatory History of Present Illness ED Provider: Luiza Martinez PA-C HPI Narrative: 65-year-old male with a past medical history of diabetes, HLD, anxiety, HTN, presenting to the ED complaining of laceration to scalp and head injury s/p car door hitting him in head around 03:30. 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 Denies LOC or anticoagulation use. Tetanus unknown. Denies neck/back pain, nausea, vomiting, lightheadedness/dizziness, vision change or loss. PCP sent patient to ED for further eval Related Data Previous Rx's ?Medication ?Instructions ?Recorded cholecalciferol (vitamin D3) 25 25 mcg PO DAILY #90 tabs 11/08/22 mcg (1,000 unit) tablet blood sugar diagnostic (FreeStyle #100 ea 03/15/23 Lite Strips) blood-glucose meter (FreeStyle #1 ea 03/15/23 Lite Meter kit) lancets 28 gauge (FreeStyle #100 ea 03/15/23 Lancets) Dexcom G7 Topographical Field Assistant #1 ea 04/29/23 (blood-glucose,wire taper,cont) Dexcom G7 Sensor (blood-glucose #1 04/29/23 sensor) blood-glucose sensor (Dexcom G7 #2 ea 07/26/23 Sensor device) blood-glucose,wire taper,cont #2 ea 07/26/23 (Dexcom G7 Topographical Field Assistant) semaglutide 3 mg tablet (Rybelsus) 3 mg PO DAILY 30 days #30 tabs 10/11/23 glipizide 2.5 mg tablet, extended 2.5 mg PO DAILY #90 tabs 04/14/24 release 24 hr lisinopril 40 mg tablet 40 mg PO DAILY #90 tabs 04/14/24 chlorthalidone 25 mg tablet 25 mg PO QAM #90 tabs 08/26/24 metformin 500 mg tablet,extended 1,000 mg (2 x 500 mg) PO BID 90 03/05/25 release 24hr (osmotic) days #360 tabs bupropion HCl 150 mg 24 hr tablet, 150 mg PO QAM 90 days #90 tabs 02/24/25 extended release Allergies Allergy/AdvReac Type Severity Reaction Status Date / Time No Known Allergies Allergy Verified 10/29/25 13:32 Review of Systems Review of Systems: Yes all other systems are reviewed and are negative Constitutional: Constitutional: Reports as per HPI Neurologic: Denies Abnormal speech present [facility] Past Medical History Attestation statement: The following information was validated with the patient. Source: old records reviewed Medical History Mixed hyperlipidemia Diabetes mellitus Obesity (BMI 30-39.9) Anxiety Insomnia Lumbar degenerative disc disease Cervical spondylosis Benign essential hypertension Surgical History History of arthroplasty of right hip Family History Family History Father Medical history unknown Mother Colon cancer Maternal Grandfather Myocardial infarction Social History Social History Housing: House Alcohol intake: never Patient Tobacco Use Status: Former Tobacco user e-Cigarette/Vaping Use: Never Used Second Hand Smoke Exposure: Yes Advance Directives: No Advance Directives Information Provided: No Do you have a plan to hurt others: No Plan service: No Current occupational status: employed Current occupation: school cafeteria cook head Cognitive needs: No Hearing needs: Yes (hearing aide) Vision needs: Yes Physical Exam Vital Signs: Vital Signs: Last Vital Signs Temp 97.9 F 10/29/25 16:36 Pulse 82 10/29/25 16:36 Resp 18 10/29/25 16:36 BP 136/79 10/29/25 16:36 Pulse Ox 94 10/29/25 16:36 O2 Del Method Room Air 10/29/25 16:36 BMI result Body Mass Index 34.2 Const: General: cooperative, healthy appearing and no acute distress Orientation/consciousness: patient oriented x3 Limitations: no limitations HEENT: Other: 2 cm superficial laceration noted to right scalp at hairline. Underlying structures appear intact. Bleeding controlled. Head: Yes normal to inspection and Yes atraumatic Ears: hearing grossly normal bilaterally General nose exam: Normal external nose present Face and sinus: Yes normal facial exam Mouth: Normal oral and palatal mucosa present Throat: Yes posterior oropharynx normal Eyes: General: appearance normal, both eyes and all related structures Pupils: Equal, round and reactive pupils present EOM: EOMs intact bilaterally Neck: Neck: Yes normal visual inspection and Yes no meningeal signs Resp: Effort & Inspection: normal respiratory effort and no respiratory distress Cardio: Rate: regular rate Back/Spine/Pelvis: Other: No midline cervical/thoracic/lumbar spinous tenderness/step-off or deformity Skin: Rashes: no rashes Neuro: General: patient oriented x3, gait normal, tone normal, moves all extremities, no meningeal signs, no focal motor deficits and CN's II-XI intact bilaterally Cranial nerves: Yes CN's II-XII intact bilaterally, Yes Equal, round and reactive pupils present and Yes Bilaterally intact EOM present Cognition (Neuro): normal cognition Speech: No Abnormal speech present Gait exam (Neuro): Normal gait present Motor exam (neuro): 5/5 motor strength present throughout and no tremor noted Extrem: General: Yes normal to inspection Course Course Course Narrative: CT head/brain wo IV con IMPRESSION: No acute intracranial process seen. Bilateral maxillary, ethmoid and frontal chronic sinus inflammatory changes. There are sialoliths in bilateral sphenoid sinuses. Results discussed with patient including worrisome signs and symptoms and strict return precautions, and when to return to the emergency department. They verbalized understanding and feel safe for discharge at this time. Medications Administered Discontinued Medications Generic Name Dose Route Start Last Admin Trade Name Freq PRN Reason Stop Dose Admin Diphtheria/Tetanus/Acell Pertussis 0.5 ml 10/29/25 16:42 10/29/25 17:37 Diphth,Pertus(Acell),Tet Adult 0.5 Ml Syringe IM 10/29/25 16:43 0.5 ml .ONCE ONE Administration Medical Decision Making Medical Decision Making [facility] Narrative: 65-year-old male with a past medical history of diabetes, HLD, anxiety, HTN, presenting to the ED complaining of laceration to scalp and head injury s/p car door hitting him in head around 03:30. On exam vital signs stable, NAD, nontoxic appearing, physical exam as noted above. No focal neuro deficits. No midline spinous tenderness. Rule out ICH/fracture. Laceration needing staple closure. Will update tetanus. Low suspicion for cervical injury or SAH Plan: Head CT, wound repair, tetanus Please refer to course for remaining clinical decision making, interpretation of labs/imaging results, and discussions with consultants and/or family members. Differential Diagnosis Differential Diagnoses: The differential diagnosis associated with the presentation includes As above Admission/Observation Consideration of admission/observation: Escalation of care including admission/observation considered Independent Interpretation I performed an independent interpretation of an: CT Scan Radiology Impression Discussion of test interpretation with radiology: I have reviewed the radiologist's reading. External Record Review External record reviewed: Inpatient record, Office record, Outpatient record, Prior outpatient labs, Prior outpatient radiology, Primary care record and Outside ED record Tests considered The following testing was considered but not selected: As above Prescription Management I considered prescription management with: Pain Medication Chronic Conditions Patient?s care impacted by: Diabetes, Hypertension and Other Social Determinants Patient?s care significantly limited by Social Determinants of Health including: Other Social Determinant of Health Procedures Laceration Laceration 1: Site: scalp Side (If applicable): right Size (cm): 2 Description: linear Depth: simple, single layer Pre-repair: wound explored and deep structures intact Skin layer closed with: greg Discharge Plan Discharge Clinical Impression: Head injury, Laceration of scalp Patient Disposition: Home, Self-Care Instructions: Laceration (DC), Head Injury (DC) Additional Instructions: Your head CT is unremarkable. We closed your wound with greg. Your wounds were repaired today in the emergency department. Keep dry and clean. You need to return to any emergency department, urgent care, or your PCPs office in 7-10 days for staple removal Apply bacitracin and or Neosporin daily Once sutures are removed apply anti scar cream like Mederma If area begins look infected, is red, there is drainage, streaking, or you have fever please return to the emergency department Prescriptions: No Action (DME) lancets [FreeStyle Lancets] 28 gauge misc See Rx Instructions .ROUTE .MEDSUPPLY Qty: 100 0RF Rx Instructions: As directed (DME) FreeStyle Lite Strips Strip See Rx Instructions .ROUTE .MEDSUPPLY Qty: 100 12RF Rx Instructions: As directed once a day (DME) blood-glucose meter [FreeStyle Lite Meter] Kit See Rx Instructions .ROUTE .MEDSUPPLY Qty: 1 0RF Rx Instructions: As directed (DME) Dexcom G7 Sensor Device See Rx Instructions .ROUTE .MEDSUPPLY Qty: 1 5RF Rx Instructions: As directed (DME) Dexcom G7 Topographical Field Assistant Misc See Rx Instructions .ROUTE .MEDSUPPLY Qty: 1 5RF Rx Instructions: As directed Rybelsus 3 mg tablet 3 mg PO DAILY 30 Days Qty: 30 1RF glipizide 2.5 mg tablet extended release 24hr 2.5 mg PO DAILY Qty: 90 3RF lisinopril 40 mg tablet 40 mg PO DAILY Qty: 90 3RF chlorthalidone 25 mg tablet 25 mg PO QAM Qty: 90 3RF metformin 500 mg tablet extended release 24hr 1,000 mg PO BID 90 Days Qty: 360 0RF bupropion HCl 150 mg tablet extended release 24 hr 150 mg PO QAM 90 Days Qty: 90 3RF cholecalciferol (vitamin D3) 25 mcg (1,000 unit) tablet 25 mcg PO DAILY Qty: 90 0RF (DME) Dexcom G7 Topographical Field Assistant Misc See Rx Instructions .Route Qty: 2 5RF Rx Instructions: As directed (DME) Dexcom G7 Sensor Device See Rx Instructions .Route Qty: 2 5RF Rx Instructions: As directed Referrals: Physician,Unknown J [Primary Care Provider, Medical] - 1 week Interventions: ED Discharge Assessment Last Done: 10/29/25 17:44 Print Language: Australian
--- OUTSIDE RECORDS SUMMARY | 2025-10-29 17:36 | XMS_ITS | Clinical Summary ---
Author Organization [address] Address [address] [place] [address] Phone Care Team Providers Care Senior Payroll Manager Name Role Phone Dimas Gaspar MD Primary Care Provider [phone] Social History Tobacco Use Types Packs/Day Years Used Date Smoking Tobacco: Never Assessed Sex and Gender Information Value Date Recorded Sex Assigned at Not on file Legal Sex Male 3:26 PM EST Gender Identity Not on file Sexual Orientation Not on file Plan of Treatment Health Maintenance Due Date Last Done Comments Colorectal Cancer Screening: Colonoscopy 1962 DTaP,Tdap,and Td Vaccines (1 - Tdap) 1981 Pneumococcal Vaccine: 50+ Ye ars (1 of 2 - PCV) 1981 Zoster Vaccines (1 of 2) 2012 HIV Screening 10/10/2022 Hepatitis C Screening 10/10/2022 Social Influencers of Health Screening 10/10/2022 Depression Screening 11/11/2024 COVID-19 Vaccine (2 - 2024-2 6 season) 2025 04/02/2022 Influenza Vaccine (#1) 2025 Cholesterol Screening (Lipid Panel) 03/16/2030 03/16/2025 RSV Immunization Adult Patie nts (1 - 1-dose 75+ series) 2037 HIB Vaccines Aged Out No longer eligi ble based on patient's age to complete this topic HPV Vaccines Aged Out No longer eligi ble based on patient's age to complete this topic Hepatitis A Vaccines Aged Out No long er eligible based on patient's age to complete this topic Hepatitis B Vaccines Aged Out No long er eligible based on patient's age to complete this topic IPV Vaccines Aged Out No longer eligi ble based on patient's age to complete this topic MMR Vaccines Aged Out No longer eligi ble based on patient's age to complete this topic Meningococcal ACWY Vaccine Aged Out N o longer eligible based on patient's age to complete this topic Meningococcal B Vaccine Aged Out No l onger eligible based on patient's age to complete this topic RSV Immunization Patients Un mika 20 months Aged Out No longer eligible b ased on patient's age to complete this topic Varicella Vaccines Aged Out No longer eligible based on patient's age to complete this topic Procedures Procedure Name Priority Date/Time Associated Diagnosis Comments LIPID PANEL WITH REFLEX TO DIRECT LDL Routine 03/16/2025 11:42 AM EDT Essential hypertension, benign Special screening for malignant neoplasm of prostate Diabetes mellitus ([facility] V24, [facility] V28) High risk medications (not anticoagulants) long-term use from Last 3 Months or Most Recently Relevant to Health Maintenance Results * (ABNORMAL) Lipid panel with reflex to direct LDL (03/16/2025 11:42 AM EDT) Cholesterol 146 0 - 200 mg/dL LAB CHEMISTRY METHOD 03/16/2025 1:43 PM [facility] Triglycerides 273(H) 0 - 150 mg/dL LAB CHEMISTRY METHOD 03/16/2025 1:43 PM [facility] HDL 30(L) >=40 mg/dL LAB CHEMISTRY METHOD 03/16/2025 1:43 PM [facility] LDL Calculated 61 0 - 100 mg/dL LAB CHEMISTRY METHOD 03/16/2025 1:43 PM [facility] VLDL Cholesterol [place] 54.6 mg/dL LAB CHEMISTRY METHOD 03/16/2025 1:43 PM [facility] Non HDL Chol. (LDL+VLDL) 116 <145 mg/dL LAB CHEMISTRY METHOD 03/16/2025 1:43 PM [facility] Chol/HDL Ratio 4.9(H) 0.0 - 4.4 LAB CHEMISTRY METHOD 03/16/2025 1:43 PM [facility] Blood Venous blood specimen / Unknown Venipuncture / Unknown 03/16/2025 11:42 AM EDT 03/16/2025 12:12 PM EDT us Yvon GALEANA LAB BLOOD ORDERABLES Final Res ult [facility] ([facility] [address] [place] [address], from Last 3 Months or Most Recently Relevant to Health Maintenance Insurance [facility] Care Teams Senior Payroll Manager Relationship Specialty Start Date End Date Dimas Gaspar MD 2 [facility] [address] [place], [place] PCP - General 07/04/09
[2025-10-29] MEDS: Diphth,Pertus(ACell),Tet Adult 0.5 ML SYRINGE IM (17:37)
--- OUTSIDE RECORDS SUMMARY | 2025-10-29 17:37 | XMS_ITS | Data Portability ---
Author Organization [place] - [facility], [facility] Address [address] [address] Assessment Encounter Date Assessment Date Assessment LastModified by Organization Details LastModified Time 08/06/2024 08/06/2024 Cerumen successfully removed from the right ear, which patient tolerated well. Otologic exam otherwise unremarkable. Recommend 6-month recheck on wax, sooner with issues. Nasal exam revealed dry mucosa with dried purulent scabbing. Nasal portion of endoscopy unrevealing. For control of his posterior rhinorrhea, recommend fluticasone nasal spray and trial of loratadine. Patient declined follow-up for this issue and states he will call if needed. For the hoarseness, laryngoscopy was unrevealing. Recommend increased oral hydration. Hopefully improved control of his postnasal drip will provide relief from this symptom. Patient to call for further evaluation should he develop dysphagia, hemoptysis, sore throat, or other concerns. Not available 08/06/2024 13:20:32 02/04/2025 02/04/2025 Cerumen successfully removed bilaterally, which patient tolerated well. Otologic exam otherwise unrevealing. Nasal examination reveals dry mucosa without evidence of infection or inflammation. Recommend patient follow-up in 9 to 12 months for cerumen management, sooner with issues or change in hearing. All questions were answered. Not available 02/04/2025 15:27:04 Plan of Treatment Reminders Order Date Submit Date Provider Last Modified By Organization Details Last Modified Time Details Appointments Establish ed 15 2025 09:45A M YAMILE BOYER PA-C Not available Not available Not available Lab None recorded. Referral None recorded. Procedures None recorded. Surgeries None recorded. Imaging None recorded. Medication Orders fluticaso ne propionat e 50 mcg/actua tion nasal spray,annie pension 2023 024 [email or web address] [facility] #[id number], [address], [place], [address], 02/04/2025 11:28:21 loratadin e 10 mg tablet 2023 024 [facility] #[id number], [address], [place], [address], 08/06/2024 10:59:50 Patient TargetsNo targets recorded. Patient InstructionsNo instructions recorded. Reason for Referral None Reported. Problems Name Problem SNOMED Code Status Onset Date Resolution Date Notes Provider Name and Address Organization Details Recorded Time Impacted cerumen in right ear 31104346911 98746 Active 2023 Impacted cerumen, right ear; Note: Date Diagnosed : 02/04/2024 1:52 PM (H61.21) Not Available [facility] 4 03:31:35 Chronic rhinitis 15817733 Active 2023 Kadie lombardo [place] - [facility] 4 10:58:57 Chronic hoarsenes s 00740524940 05 Active 2023 Kadie lombardo [place] - [facility] 4 11:00:23 Impacted cerumen of bilateral ears 18633088450 64426 Active 2024 Kadie lombardo [place] - [facility] 5 15:26:31 Problem Notes None recorded. Procedures Surgical History Date Name Laterality Status Provider Name and Address Organization Details Recorded Time 02/05/20 25 Cerumen removal without microscope bilat completed Kadie Wang [place] - [facility] 02/04/2025 15:25:56 08/06/20 24 Cerumen removal without microscope right completed Kadie Wang [place] - [facility] 08/06/2024 13:18:54 08/06/20 24 Fiberoptic Laryngoscopy (Comprehensive) completed Kadie Wang [place] - [facility] 08/06/2024 10:52:58 Imaging Results None recorded. Procedure Notes None recorded. Medical Equipment None Reported. Allergies No known drug allergies Medications Name Sig Start Date Stop Date Status Note LastModified by Organization Details LastModified Time amlodipine 5 mg-benazepr il 20 mg capsule TAKE 1 CAPSULE BY MOUTH EVERY DAY 01/31 completed Not Available Not Available Not Available clobetasol 0.05 % topical ointment APPLY LIBERALLY TOPICALLY TO AFFECTED AREA THREE TIMES A DAY 01/31 completed Not Available Not Available Not Available fluticasone propionate 50 mcg/actuati on nasal spray,suspe nsion [place] 2 sprays every day by intranasa l route in the morning for 30 days. 01/31 completed Not Available Not Available Not Available metformin ER 500 mg tablet,exte nded release 24 hr TAKE 2 TABLETS BY MOUTH 2 TIMES A DAY active Not Available Not Available No t Available loratadine 10 mg tablet Take 1 tablet every day by oral route in the morning for 30 days. 2023 active Not Available Not Available Not Avai lable Rybelsus 7 mg tablet TAKE 1 TABLET BY MOUTH EVERY DAY active Not Available Not Available No t Available Rybelsus 3 mg tablet TAKE 1 TABLET BY MOUTH EVERY DAY active Not Available Not Available No t Available Vitals Date Recorded Body height Body mass index (BMI) Body weight Provider Name and Address Organization Details Last Updated DateTime 02/04/2025 175.26 cm 34.7 kg/m2 986099.21 g Maame Alonzo [place] - [facility] 02/04/2025 11:28:16 Date Recorded Body height Body mass index (BMI) Body weight Provider Name and Address Organization Details Last Updated DateTime 08/06/2024 175.26 cm 34 kg/m2 710765.25 g Mely Gallegos [facility] 08/06/2024 10:40:30 Social History None recorded. Functional Status None recorded. Mental Status None recorded. Family History Nothing Reported. Medical History Condition Response Allergies/Hayfever N Heart Problems N Anxiety Y Tonsil Infections N Emphysema N Migraines N Thyroid Problems N Developmental Delay N COPD N Depression N Glaucoma N Nasal or Sinus Problems Y Anemia N Immune System Disorder N Anesthesia Complications N Heart Attack ([place]) N Other Skin Condition N Diabetes Y Rhinitis Y Bleeding Disorder N Food Allergy N Arthritis Y Hearing Loss Y Hyperlipidemia N Cancer N Stroke N Dementia N Nasal polyps N Asthma N High Cholesterol N Sleep Disorder N GERD/Reflux N Liver Disease N Headaches N Fibromyalgia N Hypertension Y Speech Delay N Kidney Disease N Past Encounters Encounter ID Performer Location Encounter Start Date Encounter Closed Date Diagnosis/Indication Diagnosis SNOMED-CT Code Diagnosis ICD10 Code Diagnosis IMO Codes Diagnosis Note [id number] KADIE WANG PA-C [facility] [address] [address] 08/06/2024 10:29:48 08/06/2024 11:02:24 Impacted cerumen in right ear 1250172141 686419 H61.21 Chronic rhinitis 4934625 6 J31.0 Chronic hoarseness 06352 16000 105 R49.0 [id number] KADIE WANG PA-C [facility] [address] [address] 02/04/2025 11:17:43 02/04/2025 11:41:14 Impacted cerumen of bilateral ears 1835894460 862678 H61.23 Health Concerns Section Related Observation LastModified by Organization Detai ls LastModified Time None Recorded Concern Status LastModified by Organization Details LastModified Time None Recorded Advance Directives Directive None Recorded Payers Insurance Date Sequence Insurance Name Policy Number Policy Villa Covered Member ID Villa Member ID Guarantor Name 10/19/[address] [place] [address] [id number] Jordi Bee [id number] Jordi Bee Notes Date Note Type Note Provider Name and Address Organization Details Recorded Time 08/06/2024 text/html ROS as noted in the HPI 64-year-old male presents for evaluation of the ears. Denies change in hearing, otalgia, and otorrhea. Wears hearing aids bilaterally which fit comfortably and provide good benefit. Patient without other significant otologic history. He reports he has ceased Q-tip use. Having a lot of clear postnasal drip for past 10 years, causing him to gag. Sometimes feels congested or has some rhinorrhea. Sneezing a lot as well, more recently. States the mucus makes him clear his throat a lot and makes him hoarse. There is no dysphagia, hemoptysis. He has never noticed a seasonal fluctuation of these symptoms. Had allergy testing years ago that was negative. He was instructed to use Nasonex, but he has never had an extended trial of this. Sense of smell is good and there is no facial pressure in sinus distribution. Kadie lombardo [place] - [facility] 08/06/2024 13:21:03 02/04/2025 text/html ROS as noted in the HPI 64-year-old male presents for evaluation of the ears. He reports he suspects he has a cerumen impaction. He does not feel that his hearing has changed. He denies otalgia and otorrhea. He reports a recent bout of rhinitis, which he found to be quite severe. It has resolved with use of intranasal sprays and decongestants. DEAN ROBERSON MD [address] [place] [address], [phone], [facility] - [facility] 02/05/2025 14:52:21
--- OUTSIDE RECORDS SUMMARY | 2025-10-29 17:37 | XMS_ITS | Patient Health Record ---
Author Organization [facility] [place] Address [address] [facility] [address] [place] [address] Care Team Providers Care Motion Pictures Cartoonist Name Role Phone Yvon Coffey Unavailable [phone] Reason For Referral No Information Encounters Encounter Location Date Provider Diagnosis [facility] [address] [address] 02/25/2025 Yvon Coffey [facility] [address] [address] 03/16/2025 Yvon Coffey Plan Of Treatment No Information Insurance Providers Payer Name Payer Address Payer Phone Subscriber Number Group Number Insured Name Patient Relationship to Insured Coverage Start Date Coverage End Date [facility] [address] [place] [place] [phone] [id number] SUKHWINDER HAHN Self - patient is the insured
--- OUTSIDE RECORDS SUMMARY | 2025-10-29 17:37 | XMS_ITS | Encounter Summary ---
Author Organization [facility] Address [address] [place] [address] Care Team Providers Care Spindle Plumber Name Role Phone Dimas Gaspar MD Primary Care Provider Encounter Details Date Type Department Care Team (Latest Contact Info) Description 10/27/2024 Lab Requisition [facility] - Main Lab [address] [facility] [place] [address] Sincere Lee MD [address] [facility] [address] [place] [address] Type 2 diabetes mellitus without complications (CMS/HCC V24, CMS/HCC V28) Social History Tobacco Use Types Packs/Day Years Used Date Smoking Tobacco: Never Assessed Sex and Gender Information Value Date Recorded Sex Assigned at Not on file Legal Sex Male 3:26 PM EST Gender Identity Not on file Sexual Orientation Not on file documented as of this encounter Plan of Treatment Not on file documented as of this encounter Procedures Procedure Name Priority Date/Time Associated Diagnosis Comments HEMOGLOBIN A1C Routine 10/27/2024 12:00 AM EST Type 2 diabetes mellitus without complications (CMS/HCC) documented in this encounter Results * (ABNORMAL) Hemoglobin A1c (10/27/2024 12:00 AM EST) Hemoglobin A1C 8.8(H) <6.5 % LAB CHEMISTRY METHOD 10/28/2024 9:55 AM EST [facility] Mean Bld Glu Estim. 206 mg/dL LAB CHEMISTRY METHOD 10/28/2024 9:55 AM EST [facility] Blood Venous blood specimen / Unknown 10/27/2024 10/27/2024 6:38 PM EST us Sincere Lee MD LAB BLOOD ORDERABLES Final Res ult [facility] [address] [place] [address], documented in this encounter Visit Diagnoses Diagnosis Type 2 diabetes mellitus without complications (CMS/HCC V24, CMS/HCC V28) documented in this encounter Care Teams Spindle Plumber Relationship Specialty Start Date End Date Dimas Gaspar MD [address] [place] [address] Dr [address] [place], [place] PCP - General 07/04/09 documented as of this encounter
--- OUTSIDE RECORDS SUMMARY | 2025-10-29 17:37 | XMS_ITS | Patient Health Record ---
Author Organization [facility] [address] Address [address] [place] [address] Care Team Providers Care Thread Singer Name Role Phone VIVI CHAPPELL Unavailable [phone] BRANDT BLANCHARD Unavailable [phone] APRIL KATINA Unavailable [phone] Normoyle, Coreen Unavailable [phone] Allergies Allergen (clinical drug ingredient) Drug/Non Drug Allergy documented on EMR Reaction Allergy Type Onset Date Status amLODIPine Benzoate stomach upset Drug Allergy Active Results Component Value Reference Range Flag Notes Comp. Metabolic Panel ([id number] Reviewed date:05/24/2025 12:47:58 PM Interpretation: Performing Lab:[facility], [address] [place] [address], Phone - [phone], Director - Milagros Notes/Report: Glucose 246 70-99 mg/dL H BUN 15 8-27 mg/dL Creatinine 0.85 0.76-1.27 mg/dL eGFR 98 >59 mL/min/1.73 BUN/Creatinine Ratio 18 10-24 Sodium 136 134-144 mmol/L Potassium 4.7 3.5-5.2 mmol/L Chloride 97 96-106 mmol/L Carbon Dioxide, Total 23 20-29 mmol/L Calcium 9.5 8.6-10.2 mg/dL Protein, Total 6.8 6.0-8.5 g/dL Albumin 4.3 3.9-4.9 g/dL Globulin, Total 2.5 1.5-4.5 g/dL Bilirubin, Total 0.4 0.0-1.2 mg/dL Alkaline Phosphatase 75 44-121 IU/L AST (SGOT) 30 0-40 IU/L ALT (SGPT) 25 0-44 IU/L Lipid Panel-[id number] Reviewed date:07/15/2025 09:41:01 AM Interpretation: Performing Lab:[facility] [place], [address] [place] [address], Phone - [phone], Director - Milagros Notes/Report: Cholesterol, Total 98 100-199 mg/dL L Triglycerides 173 0-149 mg/dL H HDL Cholesterol 31 >39 mg/dL L VLDL Cholesterol [place] 29 5-40 mg/dL LDL Chol Calc (NIH) 38 0-99 mg/dL Lipid Panel-[id number] Reviewed date:05/24/2025 12:49:11 PM Interpretation: Performing Lab:[facility] [place], [address] [place] [address], Phone - [phone], Director - Milagros Notes/Report: Cholesterol, Total 158 100-199 mg/dL Triglycerides 400 0-149 mg/dL H HDL Cholesterol 27 >39 mg/dL L VLDL Cholesterol [place] 63 5-40 mg/dL H LDL Chol Calc (NIH) 68 0-99 mg/dL CBC With Differential/Platel et-[id number] Reviewed date:05/24/2025 12:47:58 PM Interpretation: Performing Lab:[facility] [place], [address] [place] [address], Phone - [phone], Director - Milagros Notes/Report: WBC 6.4 3.4-10.8 x10E3/uL RBC 5.27 4.14-5.80 x10E6/uL Hemoglobin 15.6 13.0-17.7 g/dL Hematocrit 45.5 37.5-51.0 % MCV 86 79-97 fL MCH 29.6 26.6-33.0 pg MCHC 34.3 31.5-35.7 g/dL RDW 14.2 11.6-15.4 % Platelets 208 150-450 x10E3/uL Neutrophils 46 Not Estab. % Lymphs 42 Not Estab. % Monocytes 8 Not Estab. % Eos 3 Not Estab. % Basos 1 Not Estab. % Neutrophils (Absolute) 2.9 1.4-7.0 x10E3/uL Lymphs (Absolute) 2.7 0.7-3.1 x10E3/uL Monocytes(Absolute) 0.5 0.1-0.9 x10E3/uL Eos (Absolute) 0.2 0.0-0.4 x10E3/uL Baso (Absolute) 0.1 0.0-0.2 x10E3/uL Immature Granulocytes 0 Not Estab. % Immature Grans (Abs) 0.0 0.0-0.1 x10E3/uL Urinalysis, Complete-[id number] Reviewed date:05/24/2025 12:47:58 PM Interpretation: [facility]forming [facility], [address] [place] [address], Phone - [phone], Director - Adyy Notes/Report: Specific [place] 1.021 1.005-1.030 pH 6.0 5.0-7.5 Urine-Color Yellow Yellow Appearance Clear Clear WBC Esterase Negative Negative Protein Negative Negative/Trace Glucose 3+ Negative A Ketones Negative Negative Occult Blood Negative Negative Bilirubin Negative Negative Urobilinogen,Semi-Qn 0.2 0.2-1.0 mg/dL Nitrite, Urine Negative Negative Microscopic Examination M icroscopic follows if indicated. Microscopic Examination See below: M icroscopic was indicated and was performed. WBC None seen 0 - 5 /hpf RBC None seen 0 - 2 /hpf Epithelial Cells (non renal) None seen 0 - 10 /hpf Casts None seen None seen /lpf Bacteria None seen None seen/Few Hemoglobin [id number] Reviewed date:05/25/2025 08:17:41 AM Interpretation: Performing Lab:[facility], [address] [place] [address], [place], Phone - [phone], Director - Milagros Notes/Report: Hemoglobin A1c 9.3 4.8-5.6 % H . Prediabetes: 5.7 - 6.4 Diabetes: >6.4 Glycemic control for adults with diabetes: <7.0 Reason For Referral Reason [facility] Diagnosis 1 Skin lesion (L98.9) Referral Organization [facility] [address] Referring Provider First Name Coreen Referring Provider Last Name Guy Referring Provider Speciality Internal M edicine Referred Provider Specialty Dermatology General Notes Jocelin Antonio 10:57:45 AM > Pt given referral faxed to Referral Priority Routine Medications Medication SIG (Take, Route, Frequency, Duration) Notes Start Date End Date Status Losartan Potassium 100 MG Tablet 1 tablet Orally Once a day A ctive Aspirin 81 81 MG Tablet Delayed Release 1 tablet Orally Once a day Active Mounjaro 5 MG/0.5ML Solution Auto-injector INJECT 0.5ML SUBCUTANEOUSLY ONCE WEEKLY DIRECTED; Duration: Active glipiZIDE 2.5 MG Tablet TAKE 1 TABLET BY MOUTH 30 MINUTES BEFORE BREAKFAST ONCE A DAY; Duration: 90 Active metFORMIN HCl ER 500 MG Tablet Extended Release 24 Hour TAKE 2 TABLETS ORALLY 2 TIMES A DAY FOR 90 DAYS; Duration: 90 Active Metoprolol Succinate ER 25 MG Tablet Extended Release 24 Hour 1 tablet Orally Once a day; Duration: 90 days Active Rosuvastatin Calcium 5 MG Tablet 1 tablet Orally Once a day; Duration: 90 days Active buPROPion HCl ER (XL) 150 MG Tablet Extended Release 24 Hour 1 tablet in the morning Orally Once a day Active Multivitamin Active Chlorthalidone 25 MG Tablet 1 tablet in the morning with food Orally daily Active Social History Section Notes: ETOH Use: denies Tob Use: quit 2008, 1PPD for 20 years Drug Use: none 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 , has [employer] developer for ETOH Use: denies Tob Use: quit 2008, 1PPD for 20 years Drug Use: none 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 , has oracle sql developer for ETOH Use: denies Tob Use: quit 2008, 1PPD for 20 years Drug Use: none 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 , has oracle sql developer for ETOH Use: denies Tob Use: quit 2008, 1PPD for 20 years Drug Use: none 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 , has oracle sql developer for Problems Problem Type SNOMED Code ICD Code Onset Dates Problem Status W/U Status Risk Notes Problem Abnormal blood pressure (93777789) Encounter for examination of blood pressure with abnormal findings (Z01.31) Active confirmed Problem Hyperlipidemia (52252642) Hyperlipemia, idiopathic familial (E78.5) Active confirmed Problem Abnormal metabolic state due to diabetes mellitus (149499459) Abnormal metabolic state due to diabetes mellitus (E11.9) Active confirmed Problem Essential hypertension (80194311) Hypertension, essential (I10) Active confirmed Problem Generalized anxiety disorder (07495716) Anxiety, generalized (F41.1) Active confirmed Problem Type II diabetes mellitus without complication (469497355) Type 2 diabetes mellitus treated without insulin (E11.9) Active confirmed Problem Obesity (105677410) Moderate obesity (E66.9) Active confirmed Vital Signs Heart Rate 81 /min 10/19/2025 Oximetry 96 % 10/19/2025 Blood pressure diastolic 80 mm Hg 10/19/2025 Height 65 in 10/19/2025 Blood pressure systolic 128 mm Hg 10/19/2025 Weight 229.4 lbs 10/19/2025 BMI 38.17 kg/m2 10/19/2025 Encounters Encounter Location Date Provider Diagnosis [address] [address] 05/28/[address] [facility] [address] [address] 05/04/2025 KATINA CHEN Skin lesion L98.9 ; Type 2 diabetes mellitus treated without insulin E11.9 ; Hypertension, essential I10 ; Anxiety, generalized F41.1 ; Moderate obesity E66.9 and Encounter for examination of blood pressure with abnormal findings Z01.[address] [address] 05/26/2025 VIVI MISTI Hypertension, essent ial I10 ; Anxiety, generalized F41.1 ; Type 2 diabetes mellitus treated without insulin E11.9 ; Moderate obesity E66.9 and Encounter for examination of blood pressure with abnormal findings Z01.[address] [address] 07/02/2025 VIVI MISTI Hypertension, essent ial I10 ; Anxiety, generalized F41.1 ; Type 2 diabetes mellitus treated without insulin E11.9 ; Moderate obesity E66.9 and Encounter for examination of blood pressure with abnormal findings Z01.[address] [address] 10/19/2025 VIVI MISTI Hypertension, essent ial I10 ; Anxiety, generalized F41.1 ; Type 2 diabetes mellitus treated without insulin E11.9 ; Acute bilateral low back pain, unspecified whether sciatica present M54.50 ; Moderate obesity E66.9 and Encounter for examination of blood pressure with abnormal findings Z01.[address] [address] 05/17/2025 KATINA CHEN [facility] [address] [facility] [address] [facility] [address] [place] [address] 05/28/[address] [facility] [address] [place] [address] 06/14/[address] [facility] [address] [place] [address] 06/28/2025 VIVI MISTI [facility] [address] [place] [address] 07/05/2025 VIVI MISTI Hypertension, essent ial I10 [facility] [address] [place] [address] 07/19/2025 VIVI MISTI Hypertension, essent ial I10 [facility] [address] [place] [address] 07/21/2025 VIVI MISTI Hypertension, essent ial I10 [facility] [address] [place] [address] 08/17/2025 VIVI MISTI Hypertension, essent ial I10 [facility] [address] [facility] [place] [address] 10/11/2025 IVVI MISTI [facility] [address] [facility] [address] [place] [address] 10/29/2025 VIVI MISTI [facility] [address] [facility] [address] [facility] [address] [place] [address] 10/29/2025 VIVI MISTI Assessments Encounter Date Diagnosis (ICD Code) Assessment Notes Treatment Notes Treatment Clinical Notes Section Notes 05/04/2025 Skin lesion (ICD-10 - L98.9) Patient is welcomed to the practice. They are coming from Dr. Lee at [facility]. Last complete physical exam with labs 10/2024. Medications, medical history, allergies, surgeries, hospitalizations, family history, and social history were reviewed. Problem list updated. Cardiopulmonary and abdominal exam unremarkable. Patient will follow-up in office. All patient questions answered at this time. #Health maintenance: Up-to-date on flu, COVID, RSV vaccines, declines pneumonia vaccine, declines shingles due to believing insurance will not cover this, patient encouraged to contact insurance regarding this. Colonoscopy 2020 at [facility], reportedly on 10-year plan, will request records. #Hypertension: BP today elevated 140/90, repeat 152/84. 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 He states he has a BP cuff and monitor at home but does not take his BP. Patient encouraged to take his blood pressure twice daily with follow-up in 2 weeks to review. Continue losartan 100 mg daily and chlorthalidone 25 mg daily. He reports an allergy to amlodipine. #Type 2 diabetes: Will check A1c and follow-up in 2 weeks. Will check CMP and UA as well. Continue metformin 1000 mg twice daily, glipizide 2.5 mg daily, Rybelsus 7 mg daily. Consider transitioning to Mounjaro from [facility] on next visit. #Skin lesion: Initially began as a skin tag and has since became a raised, pink, scaly skin lesion for the past several years. Denies any changes to lesion for the past years. On exam, raised, pink, asymmetric skin lesion noted to right upper extremity, nontender to palpation, scaling in nature. Approximately 6 mm long x 3 mm wide. Referral placed to dermatology today. #Anxiety: States this is well-controlled. Continue bupropion 150 mg daily. #Obesity: Weight 231.9 pounds, BMI 38.59. Patient given information regarding weight management program and given new patient coordinator number, he states he will call. He will be a good candidate for Mounjaro rather than Rybelsus, will consider this at next visit. Lipid panel to be reviewed in 2 weeks as well. 05/04/2025 Type 2 diabetes mellitus treated without insulin (ICD-10 - E11.9) Patient is welcomed to the practice. They are coming from Dr. Lee at [facility]. Last complete physical exam with labs 10/2024. Medications, medical history, allergies, surgeries, hospitalizations, family history, and social history were reviewed. Problem list updated. Cardiopulmonary and abdominal exam unremarkable. Patient will follow-up in office. All patient questions answered at this time. #Health maintenance: Up-to-date on flu, COVID, RSV vaccines, declines pneumonia vaccine, declines shingles due to believing insurance will not cover this, patient encouraged to contact insurance regarding this. Colonoscopy 2019 at [facility], reportedly on 10-year plan, will request records. #Hypertension: BP today elevated 140/90, repeat 152/84. 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 He states he has a BP cuff and monitor at home but does not take his BP. Patient encouraged to take his blood pressure twice daily with follow-up in 2 weeks to review. Continue losartan 100 mg daily and chlorthalidone 25 mg daily. He reports an allergy to amlodipine. #Type 2 diabetes: Will check A1c and follow-up in 2 weeks. Will check CMP and UA as well. Continue metformin 1000 mg twice daily, glipizide 2.5 mg daily, Rybelsus 7 mg daily. Consider transitioning to Mounjaro from Rybelsus on next visit. #Skin lesion: Initially began as a skin tag and has since became a raised, pink, scaly skin lesion for the past several years. Denies any changes to lesion for the past years. On exam, raised, pink, asymmetric skin lesion noted to right upper extremity, nontender to palpation, scaling in nature. Approximately 6 mm long x 3 mm wide. Referral placed to dermatology today. #Anxiety: States this is well-controlled. Continue bupropion 150 mg daily. #Obesity: Weight 231.9 pounds, BMI 38.59. Patient given information regarding weight management program and given new patient coordinator number, he states he will call. He will be a good candidate for Mounjaro rather than Rybelsus, will consider this at next visit. Lipid panel to be reviewed in 2 weeks as well. 05/26/2025 Hypertension, essential (ICD-10 - I10) Jordi is a 64-year-old male who presents to the office today for follow-up. #Hyperlipidemia: Patient fully educated on his elevated cholesterol panel with triglycerides of 400, HDL of 27, VLDL of 63. At this time we will beginning rosuvastatin 5 mg tablets #Type 2 diabetes: Recent hemoglobin A1c noted to be 9.3, patient given Mounjaro 2.5 mg injection today in office, patient given sample box x 4 pens. Patient fully educated on how to use the medication and potential side effects that include but not limited to GI side effects. Denies any family history or personal history of thyroid cancer, medullary endocrine neoplasia. Patient is to discontinue Rybelsus and continue metformin at this time. #Hypertension: Patient at this time has uncontrolled hypertension: Currently taking losartan 100, chlorthalidone 25 mg tablets. Of note patient does have an amlodipine allergy, was previously on lisinopril, at this time given patient's elevated blood pressure readings in office prescribing metoprolol 25 mg tablets, having patient come back to the office on 05/28/2025 for a blood pressure check. Consider increasing metoprolol or obtaining renal artery ultrasound depending on results and further evaluation of uncontrolled hypertension. Advised patient to focus on a diabetic diet and to limit salt intake. #Anxiety: Currently being prescribed bupropion HCl ER 150 tablets daily, consider increasing doses patient states his anxiety has been increased and he feels as though this is contributing to his increase in his blood pressure. All questions have been answered to patient's satisfaction. Patient verbalized understanding of diagnosis and treatments explained. Advised to call sooner prior to next visit it any questions/concerns arise. Case discussed with Kevin CAR who reviewed the assessment and plan. Chart, medications, labs, vital signs reviewed. Dictation was accomplished with the use of [employer] voice recognition software, which is prone to medical misidentifications and grammatical errors. This are unintentional and the practitioner does try to identify and correct these, but some could still be present. Please do not hesitate to contact practitioner for clarification. 05/26/2025 Anxiety, generalized (ICD-10 - F41.1) Jordi is a 64-year-old male who presents to the office today for follow-up. #Hyperlipidemia: Patient fully educated on his elevated cholesterol panel with triglycerides of 400, HDL of 27, VLDL of 63. At this time we will beginning rosuvastatin 5 mg tablets #Type 2 diabetes: Recent hemoglobin A1c noted to be 9.3, patient given Mounjaro 2.5 mg injection today in office, patient given sample box x 4 pens. Patient fully educated on how to use the medication and potential side effects that include but not limited to GI side effects. Denies any family history or personal history of thyroid cancer, medullary endocrine neoplasia. Patient is to discontinue Rybelsus and continue metformin at this time. #Hypertension: Patient at this time has uncontrolled hypertension: Currently taking losartan 100, chlorthalidone 25 mg tablets. Of note patient does have an amlodipine allergy, was previously on lisinopril, at this time given patient's elevated blood pressure readings in office prescribing metoprolol 25 mg tablets, having patient come back to the office on 05/28/2025 for a blood pressure check. Consider increasing metoprolol or obtaining renal artery ultrasound depending on results and further evaluation of uncontrolled hypertension. Advised patient to focus on a diabetic diet and to limit salt intake. #Anxiety: Currently being prescribed bupropion HCl ER 150 tablets daily, consider increasing doses patient states his anxiety has been increased and he feels as though this is contributing to his increase in his blood pressure. All questions have been answered to patient's satisfaction. Patient verbalized understanding of diagnosis and treatments explained. Advised to call sooner prior to next visit it any questions/concerns arise. Case discussed with Kevin CAR who reviewed the assessment and plan. Chart, medications, labs, vital signs reviewed. Dictation was accomplished with the use of [employer] voice recognition software, which is prone to medical misidentifications and grammatical errors. This are unintentional and the practitioner does try to identify and correct these, but some could still be present. Please do not hesitate to contact practitioner for clarification. 07/02/2025 Hypertension, essential (ICD-10 - I10) Jordi is a 64-year-old male who presents to the office today for follow-up. #Hypertension: Blood pressure in office 138/90, continue metoprolol 25 mg tablets, losartan potassium 100 mg tablets..Consider renal artery ultrasound #Hyperlipidemia: Patient fully educated on his elevated cholesterol panel with triglycerides of 400, HDL of 27, VLDL of 63.Continue rosuvastatin 5 mg tablets.. Rechecking fasted lipid panel. #Type 2 diabetes: Increasing Mounjaro to 5mg weekly. HA1C 7.4%, Significant progress since May! Denies any family history or personal history of thyroid cancer, medullary endocrine neoplasia. Patient is to discontinue Rybelsus and continue metformin at this time. #Anxiety: Currently being prescribed bupropion HCl ER 150 tablets daily..States that anxiety is under control at this time All questions have been answered to patient's satisfaction. Patient verbalized understanding of diagnosis and treatments explained. Advised to call sooner prior to next visit it any questions/concerns arise. Case discussed with Kevin CAR who reviewed the assessment and plan. Chart, medications, labs, vital signs reviewed. Dictation was accomplished with the use of [employer] voice recognition software, which is prone to medical misidentifications and grammatical errors. This are unintentional and the practitioner does try to identify and correct these, but some could still be present. Please do not hesitate to contact practitioner for clarification. 07/02/2025 Anxiety, generalized (ICD-10 - F41.1) Jordi is a 64-year-old male who presents to the office today for follow-up. #Hypertension: Blood pressure in office 138/90, continue metoprolol 25 mg tablets, losartan potassium 100 mg tablets..Consider renal artery ultrasound #Hyperlipidemia: Patient fully educated on his elevated cholesterol panel with triglycerides of 400, HDL of 27, VLDL of 63.Continue rosuvastatin 5 mg tablets.. Rechecking fasted lipid panel. #Type 2 diabetes: Increasing Mounjaro to 5mg weekly. HA1C 7.4%, Significant progress since May! Denies any family history or personal history of thyroid cancer, medullary endocrine neoplasia. Patient is to discontinue Rybelsus and continue metformin at this time. #Anxiety: Currently being prescribed bupropion HCl ER 150 tablets daily..States that anxiety is under control at this time All questions have been answered to patient's satisfaction. Patient verbalized understanding of diagnosis and treatments explained. Advised to call sooner prior to next visit it any questions/concerns arise. Case discussed with Kevin CAR who reviewed the assessment and plan. Chart, medications, labs, vital signs reviewed. Dictation was accomplished with the use of [employer] voice recognition software, which is prone to medical misidentifications and grammatical errors. This are unintentional and the practitioner does try to identify and correct these, but some could still be present. Please do not hesitate to contact practitioner for clarification. 07/05/2025 Hypertension, essential (ICD-10 - I10) 07/19/2025 Hypertension, essential (ICD-10 - I10) 07/21/2025 Hypertension, essential (ICD-10 - I10) 08/17/2025 Hypertension, essential (ICD-10 - I10) 10/19/2025 Hypertension, essential (ICD-10 - I10) Jordi is a 64-year-old male who presents to the office today for follow-up. #Lumbar spine pain: Obtaining lumbar spinal x-ray for further evaluation of lumbar spine pain consider physical therapy #Hypertension:Well-co ntrolled on current regimen, continue metoprolol 25 mg tablets, losartan potassium 100 mg tablets, Chlorothalidone 25 mg tablets #Hyperlipidemia: Continue rosuvastatin 5 mg tablets, potentially consider repeating cholesterol panel at 3-month follow-up. Recent lipid panel demonstrated total cholesterol of 98, triglycerides of 173 and HDL of 31. Patient's LDL cholesterol is now 38. #Type 2 diabetes:Continue Mounjaro 5 mg once weekly, recent hemoglobin A1c in office today is 7.3%, continue metformin. #Anxiety: Currently being prescribed bupropion HCl ER 150 tablets daily..States that anxiety is under control at this time All questions have been answered to patient's satisfaction. Patient verbalized understanding of diagnosis and treatments explained. Advised to call sooner prior to next visit it any questions/concerns arise. Case discussed with Kevin CAR who reviewed the assessment and plan. Chart, medications, labs, vital signs reviewed. Dictation was accomplished with the use of [employer] voice recognition software, which is prone to medical misidentifications and grammatical errors. This are unintentional and the practitioner does try to identify and correct these, but some could still be present. Please do not hesitate to contact practitioner for clarification. 10/19/2025 Anxiety, generalized (ICD-10 - F41.1) Jordi is a 64-year-old male who presents to the office today for follow-up. #Lumbar spine pain: Obtaining lumbar spinal x-ray for further evaluation of lumbar spine pain consider physical therapy #Hypertension:Well-co ntrolled on current regimen, continue metoprolol 25 mg tablets, losartan potassium 100 mg tablets, Chlorothalidone 25 mg tablets #Hyperlipidemia: Continue rosuvastatin 5 mg tablets, potentially consider repeating cholesterol panel at 3-month follow-up. Recent lipid panel demonstrated total cholesterol of 98, triglycerides of 173 and HDL of 31. Patient's LDL cholesterol is now 38. #Type 2 diabetes:Continue Mounjaro 5 mg once weekly, recent hemoglobin A1c in office today is 7.3%, continue metformin. #Anxiety: Currently being prescribed bupropion HCl ER 150 tablets daily..States that anxiety is under control at this time All questions have been answered to patient's satisfaction. Patient verbalized understanding of diagnosis and treatments explained. Advised to call sooner prior to next visit it any questions/concerns arise. Case discussed with Kevin CAR who reviewed the assessment and plan. Chart, medications, labs, vital signs reviewed. Dictation was accomplished with the use of [employer] voice recognition software, which is prone to medical misidentifications and grammatical errors. This are unintentional and the practitioner does try to identify and correct these, but some could still be present. Please do not hesitate to contact practitioner for clarification. 10/19/2025 Type 2 diabetes mellitus treated without insulin (ICD-10 - E11.9) Jordi is a 64-year-old male who presents to the office today for follow-up. #Lumbar spine pain: Obtaining lumbar spinal x-ray for further evaluation of lumbar spine pain consider physical therapy #Hypertension:Well-co ntrolled on current regimen, continue metoprolol 25 mg tablets, losartan potassium 100 mg tablets, Chlorothalidone 25 mg tablets #Hyperlipidemia: Continue rosuvastatin 5 mg tablets, potentially consider repeating cholesterol panel at 3-month follow-up. Recent lipid panel demonstrated total cholesterol of 98, triglycerides of 173 and HDL of 31. Patient's LDL cholesterol is now 38. #Type 2 diabetes:Continue Mounjaro 5 mg once weekly, recent hemoglobin A1c in office today is 7.3%, continue metformin. #Anxiety: Currently being prescribed bupropion HCl ER 150 tablets daily..States that anxiety is under control at this time All questions have been answered to patient's satisfaction. Patient verbalized understanding of diagnosis and treatments explained. Advised to call sooner prior to next visit it any questions/concerns arise. Case discussed with Kevin CAR who reviewed the assessment and plan. Chart, medications, labs, vital signs reviewed. Dictation was accomplished with the use of [employer] voice recognition software, which is prone to medical misidentifications and grammatical errors. This are unintentional and the practitioner does try to identify and correct these, but some could still be present. Please do not hesitate to contact practitioner for clarification. 07/02/2025 Type 2 diabetes mellitus treated without insulin (ICD-10 - E11.9) Jordi is a 64-year-old male who presents to the office today for follow-up. #Hypertension: Blood pressure in office 138/90, continue metoprolol 25 mg tablets, losartan potassium 100 mg tablets..Consider renal artery ultrasound #Hyperlipidemia: Patient fully educated on his elevated cholesterol panel with triglycerides of 400, HDL of 27, VLDL of 63.Continue rosuvastatin 5 mg tablets.. Rechecking fasted lipid panel. #Type 2 diabetes: Increasing Mounjaro to 5mg weekly. HA1C 7.4%, Significant progress since May! Denies any family history or personal history of thyroid cancer, medullary endocrine neoplasia. Patient is to discontinue Rybelsus and continue metformin at this time. #Anxiety: Currently being prescribed bupropion HCl ER 150 tablets daily..States that anxiety is under control at this time All questions have been answered to patient's satisfaction. Patient verbalized understanding of diagnosis and treatments explained. Advised to call sooner prior to next visit it any questions/concerns arise. Case discussed with Kevin CAR who reviewed the assessment and plan. Chart, medications, labs, vital signs reviewed. Dictation was accomplished with the use of [employer] voice recognition software, which is prone to medical misidentifications and grammatical errors. This are unintentional and the practitioner does try to identify and correct these, but some could still be present. Please do not hesitate to contact practitioner for clarification. 05/26/2025 Type 2 diabetes mellitus treated without insulin (ICD-10 - E11.9) Jordi is a 64-year-old male who presents to the office today for follow-up. #Hyperlipidemia: Patient fully educated on his elevated cholesterol panel with triglycerides of 400, HDL of 27, VLDL of 63. At this time we will beginning rosuvastatin 5 mg tablets #Type 2 diabetes: Recent hemoglobin A1c noted to be 9.3, patient given Mounjaro 2.5 mg injection today in office, patient given sample box x 4 pens. Patient fully educated on how to use the medication and potential side effects that include but not limited to GI side effects. Denies any family history or personal history of thyroid cancer, medullary endocrine neoplasia. Patient is to discontinue Rybelsus and continue metformin at this time. #Hypertension: Patient at this time has uncontrolled hypertension: Currently taking losartan 100, chlorthalidone 25 mg tablets. Of note patient does have an amlodipine allergy, was previously on lisinopril, at this time given patient's elevated blood pressure readings in office prescribing metoprolol 25 mg tablets, having patient come back to the office on 05/28/2025 for a blood pressure check. Consider increasing metoprolol or obtaining renal artery ultrasound depending on results and further evaluation of uncontrolled hypertension. Advised patient to focus on a diabetic diet and to limit salt intake. #Anxiety: Currently being prescribed bupropion HCl ER 150 tablets daily, consider increasing doses patient states his anxiety has been increased and he feels as though this is contributing to his increase in his blood pressure. All questions have been answered to patient's satisfaction. Patient verbalized understanding of diagnosis and treatments explained. Advised to call sooner prior to next visit it any questions/concerns arise. Case discussed with Kevin CAR who reviewed the assessment and plan. Chart, medications, labs, vital signs reviewed. Dictation was accomplished with the use of [employer] voice recognition software, which is prone to medical misidentifications and grammatical errors. This are unintentional and the practitioner does try to identify and correct these, but some could still be present. Please do not hesitate to contact practitioner for clarification. 05/04/2025 Hypertension, essential (ICD-10 - I10) Patient is welcomed to the practice. They are coming from Dr. Lee at [facility]. Last complete physical exam with labs 10/2024. Medications, medical history, allergies, surgeries, hospitalizations, family history, and social history were reviewed. Problem list updated. Cardiopulmonary and abdominal exam unremarkable. Patient will follow-up in office. All patient questions answered at this time. #Health maintenance: Up-to-date on flu, COVID, RSV vaccines, declines pneumonia vaccine, declines shingles due to believing insurance will not cover this, patient encouraged to contact insurance regarding this. Colonoscopy 2020 at [facility], reportedly on 10-year plan, will request records. #Hypertension: BP today elevated 140/90, repeat 152/84. 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 He states he has a BP cuff and monitor at home but does not take his BP. Patient encouraged to take his blood pressure twice daily with follow-up in 2 weeks to review. Continue losartan 100 mg daily and chlorthalidone 25 mg daily. He reports an allergy to amlodipine. #Type 2 diabetes: Will check A1c and follow-up in 2 weeks. Will check CMP and UA as well. Continue metformin 1000 mg twice daily, glipizide 2.5 mg daily, Rybelsus 7 mg daily. Consider transitioning to Mounjaro from Rybelsus on next visit. #Skin lesion: Initially began as a skin tag and has since became a raised, pink, scaly skin lesion for the past several years. Denies any changes to lesion for the past years. On exam, raised, pink, asymmetric skin lesion noted to right upper extremity, nontender to palpation, scaling in nature. Approximately 6 mm long x 3 mm wide. Referral placed to dermatology today. #Anxiety: States this is well-controlled. Continue bupropion 150 mg daily. #Obesity: Weight 231.9 pounds, BMI 38.59. Patient given information regarding weight management program and given new patient coordinator number, he states he will call. He will be a good candidate for Mounjaro rather than Rybelsus, will consider this at next visit. Lipid panel to be reviewed in 2 weeks as well. 05/04/2025 Anxiety, generalized (ICD-10 - F41.1) Patient is welcomed to the practice. They are coming from Dr. Lee at [facility]. Last complete physical exam with labs 10/2024. Medications, medical history, allergies, surgeries, hospitalizations, family history, and social history were reviewed. Problem list updated. Cardiopulmonary and abdominal exam unremarkable. Patient will follow-up in office. All patient questions answered at this time. #Health maintenance: Up-to-date on flu, COVID, RSV vaccines, declines pneumonia vaccine, declines shingles due to believing insurance will not cover this, patient encouraged to contact insurance regarding this. Colonoscopy 2020 at [facility], reportedly on 10-year plan, will request records. #Hypertension: BP today elevated 140/90, repeat 152/84. 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 He states he has a BP cuff and monitor at home but does not take his BP. Patient encouraged to take his blood pressure twice daily with follow-up in 2 weeks to review. Continue losartan 100 mg daily and chlorthalidone 25 mg daily. He reports an allergy to amlodipine. #Type 2 diabetes: Will check A1c and follow-up in 2 weeks. Will check CMP and UA as well. Continue metformin 1000 mg twice daily, glipizide 2.5 mg daily, Rybelsus 7 mg daily. Consider transitioning to Mounjaro from Rybelsus on next visit. #Skin lesion: Initially began as a skin tag and has since became a raised, pink, scaly skin lesion for the past several years. Denies any changes to lesion for the past years. On exam, raised, pink, asymmetric skin lesion noted to right upper extremity, nontender to palpation, scaling in nature. Approximately 6 mm long x 3 mm wide. Referral placed to dermatology today. #Anxiety: States this is well-controlled. Continue bupropion 150 mg daily. #Obesity: Weight 231.9 pounds, BMI 38.59. Patient given information regarding weight management program and given new patient coordinator number, he states he will call. He will be a good candidate for Mounjaro rather than Rybelsus, will consider this at next visit. Lipid panel to be reviewed in 2 weeks as well. 05/26/2025 Moderate obesity (ICD-10 - E66.9) Jordi is a 64-year-old male who presents to the office today for follow-up. #Hyperlipidemia: Patient fully educated on his elevated cholesterol panel with triglycerides of 400, HDL of 27, VLDL of 63. At this time we will beginning rosuvastatin 5 mg tablets #Type 2 diabetes: Recent hemoglobin A1c noted to be 9.3, patient given Mounjaro 2.5 mg injection today in office, patient given sample box x 4 pens. Patient fully educated on how to use the medication and potential side effects that include but not limited to GI side effects. Denies any family history or personal history of thyroid cancer, medullary endocrine neoplasia. Patient is to discontinue Rybelsus and continue metformin at this time. #Hypertension: Patient at this time has uncontrolled hypertension: Currently taking losartan 100, chlorthalidone 25 mg tablets. Of note patient does have an amlodipine allergy, was previously on lisinopril, at this time given patient's elevated blood pressure readings in office prescribing metoprolol 25 mg tablets, having patient come back to the office on 05/28/2025 for a blood pressure check. Consider increasing metoprolol or obtaining renal artery ultrasound depending on results and further evaluation of uncontrolled hypertension. Advised patient to focus on a diabetic diet and to limit salt intake. #Anxiety: Currently being prescribed bupropion HCl ER 150 tablets daily, consider increasing doses patient states his anxiety has been increased and he feels as though this is contributing to his increase in his blood pressure. All questions have been answered to patient's satisfaction. Patient verbalized understanding of diagnosis and treatments explained. Advised to call sooner prior to next visit it any questions/concerns arise. Case discussed with Kevin CAR who reviewed the assessment and plan. Chart, medications, labs, vital signs reviewed. Dictation was accomplished with the use of [employer] voice recognition software, which is prone to medical misidentifications and grammatical errors. This are unintentional and the practitioner does try to identify and correct these, but some could still be present. Please do not hesitate to contact practitioner for clarification. 07/02/2025 Moderate obesity (ICD-10 - E66.9) Jordi is a 64-year-old male who presents to the office today for follow-up. #Hypertension: Blood pressure in office 138/90, continue metoprolol 25 mg tablets, losartan potassium 100 mg tablets..Consider renal artery ultrasound #Hyperlipidemia: Patient fully educated on his elevated cholesterol panel with triglycerides of 400, HDL of 27, VLDL of 63.Continue rosuvastatin 5 mg tablets.. Rechecking fasted lipid panel. #Type 2 diabetes: Increasing Mounjaro to 5mg weekly. HA1C 7.4%, Significant progress since May! Denies any family history or personal history of thyroid cancer, medullary endocrine neoplasia. Patient is to discontinue Rybelsus and continue metformin at this time. #Anxiety: Currently being prescribed bupropion HCl ER 150 tablets daily..States that anxiety is under control at this time All questions have been answered to patient's satisfaction. Patient verbalized understanding of diagnosis and treatments explained. Advised to call sooner prior to next visit it any questions/concerns arise. Case discussed with Kevin CAR who reviewed the assessment and plan. Chart, medications, labs, vital signs reviewed. Dictation was accomplished with the use of [employer] voice recognition software, which is prone to medical misidentifications and grammatical errors. This are unintentional and the practitioner does try to identify and correct these, but some could still be present. Please do not hesitate to contact practitioner for clarification. 10/19/2025 Acute bilateral low back pain, unspecified whether sciatica present (ICD-10 - M54.50) Jordi is a 64-year-old male who presents to the office today for follow-up. #Lumbar spine pain: Obtaining lumbar spinal x-ray for further evaluation of lumbar spine pain consider physical therapy #Hypertension:Well-co ntrolled on current regimen, continue metoprolol 25 mg tablets, losartan potassium 100 mg tablets, Chlorothalidone 25 mg tablets #Hyperlipidemia: Continue rosuvastatin 5 mg tablets, potentially consider repeating cholesterol panel at 3-month follow-up. Recent lipid panel demonstrated total cholesterol of 98, triglycerides of 173 and HDL of 31. Patient's LDL cholesterol is now 38. #Type 2 diabetes:Continue Mounjaro 5 mg once weekly, recent hemoglobin A1c in office today is 7.3%, continue metformin. #Anxiety: Currently being prescribed bupropion HCl ER 150 tablets daily..States that anxiety is under control at this time All questions have been answered to patient's satisfaction. Patient verbalized understanding of diagnosis and treatments explained. Advised to call sooner prior to next visit it any questions/concerns arise. Case discussed with Kevin CAR who reviewed the assessment and plan. Chart, medications, labs, vital signs reviewed. Dictation was accomplished with the use of [employer] voice recognition software, which is prone to medical misidentifications and grammatical errors. This are unintentional and the practitioner does try to identify and correct these, but some could still be present. Please do not hesitate to contact practitioner for clarification. 10/19/2025 Moderate obesity (ICD-10 - E66.9) Jordi is a 64-year-old male who presents to the office today for follow-up. #Lumbar spine pain: Obtaining lumbar spinal x-ray for further evaluation of lumbar spine pain consider physical therapy #Hypertension:Well-co ntrolled on current regimen, continue metoprolol 25 mg tablets, losartan potassium 100 mg tablets, Chlorothalidone 25 mg tablets #Hyperlipidemia: Continue rosuvastatin 5 mg tablets, potentially consider repeating cholesterol panel at 3-month follow-up. Recent lipid panel demonstrated total cholesterol of 98, triglycerides of 173 and HDL of 31. Patient's LDL cholesterol is now 38. #Type 2 diabetes:Continue Mounjaro 5 mg once weekly, recent hemoglobin A1c in office today is 7.3%, continue metformin. #Anxiety: Currently being prescribed bupropion HCl ER 150 tablets daily..States that anxiety is under control at this time All questions have been answered to patient's satisfaction. Patient verbalized understanding of diagnosis and treatments explained. Advised to call sooner prior to next visit it any questions/concerns arise. Case discussed with Kevin CAR who reviewed the assessment and plan. Chart, medications, labs, vital signs reviewed. Dictation was accomplished with the use of [employer] voice recognition software, which is prone to medical misidentifications and grammatical errors. This are unintentional and the practitioner does try to identify and correct these, but some could still be present. Please do not hesitate to contact practitioner for clarification. 07/02/2025 Encounter for examination of blood pressure with abnormal findings (ICD-10 - Z01.31) Jordi is a 64-year-old male who presents to the office today for follow-up. #Hypertension: Blood pressure in office 138/90, continue metoprolol 25 mg tablets, losartan potassium 100 mg tablets..Consider renal artery ultrasound #Hyperlipidemia: Patient fully educated on his elevated cholesterol panel with triglycerides of 400, HDL of 27, VLDL of 63.Continue rosuvastatin 5 mg tablets.. Rechecking fasted lipid panel. #Type 2 diabetes: Increasing Mounjaro to 5mg weekly. HA1C 7.4%, Significant progress since May! Denies any family history or personal history of thyroid cancer, medullary endocrine neoplasia. Patient is to discontinue Rybelsus and continue metformin at this time. #Anxiety: Currently being prescribed bupropion HCl ER 150 tablets daily..States that anxiety is under control at this time All questions have been answered to patient's satisfaction. Patient verbalized understanding of diagnosis and treatments explained. Advised to call sooner prior to next visit it any questions/concerns arise. Case discussed with Kevin CAR who reviewed the assessment and plan. Chart, medications, labs, vital signs reviewed. Dictation was accomplished with the use of [employer] voice recognition software, which is prone to medical misidentifications and grammatical errors. This are unintentional and the practitioner does try to identify and correct these, but some could still be present. Please do not hesitate to contact practitioner for clarification. 05/04/2025 Moderate obesity (ICD-10 - E66.9) Patient is welcomed to the practice. They are coming from Dr. Lee at [facility]. Last complete physical exam with labs 10/2024. Medications, medical history, allergies, surgeries, hospitalizations, family history, and social history were reviewed. Problem list updated. Cardiopulmonary and abdominal exam unremarkable. Patient will follow-up in office. All patient questions answered at this time. #Health maintenance: Up-to-date on flu, COVID, RSV vaccines, declines pneumonia vaccine, declines shingles due to believing insurance will not cover this, patient encouraged to contact insurance regarding this. Colonoscopy 2020 at [facility], reportedly on 10-year plan, will request records. #Hypertension: BP today elevated 140/90, repeat 152/84. 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 He states he has a BP cuff and monitor at home but does not take his BP. Patient encouraged to take his blood pressure twice daily with follow-up in 2 weeks to review. Continue losartan 100 mg daily and chlorthalidone 25 mg daily. He reports an allergy to amlodipine. #Type 2 diabetes: Will check A1c and follow-up in 2 weeks. Will check CMP and UA as well. Continue metformin 1000 mg twice daily, glipizide 2.5 mg daily, Rybelsus 7 mg daily. Consider transitioning to Mounjaro from [facility] on next visit. #Skin lesion: Initially began as a skin tag and has since became a raised, pink, scaly skin lesion for the past several years. Denies any changes to lesion for the past years. On exam, raised, pink, asymmetric skin lesion noted to right upper extremity, nontender to palpation, scaling in nature. Approximately 6 mm long x 3 mm wide. Referral placed to dermatology today. #Anxiety: States this is well-controlled. Continue bupropion 150 mg daily. #Obesity: Weight 231.9 pounds, BMI 38.59. Patient given information regarding weight management program and given new patient coordinator number, he states he will call. He will be a good candidate for Mounjaro rather than Rybelsus, will consider this at next visit. Lipid panel to be reviewed in 2 weeks as well. 05/26/2025 Encounter for examination of blood pressure with abnormal findings (ICD-10 - Z01.31) Jordi is a 64-year-old male who presents to the office today for follow-up. #Hyperlipidemia: Patient fully educated on his elevated cholesterol panel with triglycerides of 400, HDL of 27, VLDL of 63. At this time we will beginning rosuvastatin 5 mg tablets #Type 2 diabetes: Recent hemoglobin A1c noted to be 9.3, patient given Mounjaro 2.5 mg injection today in office, patient given sample box x 4 pens. Patient fully educated on how to use the medication and potential side effects that include but not limited to GI side effects. Denies any family history or personal history of thyroid cancer, medullary endocrine neoplasia. Patient is to discontinue Rybelsus and continue metformin at this time. #Hypertension: Patient at this time has uncontrolled hypertension: Currently taking losartan 100, chlorthalidone 25 mg tablets. Of note patient does have an amlodipine allergy, was previously on lisinopril, at this time given patient's elevated blood pressure readings in office prescribing metoprolol 25 mg tablets, having patient come back to the office on 05/28/2025 for a blood pressure check. Consider increasing metoprolol or obtaining renal artery ultrasound depending on results and further evaluation of uncontrolled hypertension. Advised patient to focus on a diabetic diet and to limit salt intake. #Anxiety: Currently being prescribed bupropion HCl ER 150 tablets daily, consider increasing doses patient states his anxiety has been increased and he feels as though this is contributing to his increase in his blood pressure. All questions have been answered to patient's satisfaction. Patient verbalized understanding of diagnosis and treatments explained. Advised to call sooner prior to next visit it any questions/concerns arise. Case discussed with Kevin CAR who reviewed the assessment and plan. Chart, medications, labs, vital signs reviewed. Dictation was accomplished with the use of [employer] voice recognition software, which is prone to medical misidentifications and grammatical errors. This are unintentional and the practitioner does try to identify and correct these, but some could still be present. Please do not hesitate to contact practitioner for clarification. 10/19/2025 Encounter for examination of blood pressure with abnormal findings (ICD-10 - Z01.31) Jordi is a 64-year-old male who presents to the office today for follow-up. #Lumbar spine pain: Obtaining lumbar spinal x-ray for further evaluation of lumbar spine pain consider physical therapy #Hypertension:Well-co ntrolled on current regimen, continue metoprolol 25 mg tablets, losartan potassium 100 mg tablets, Chlorothalidone 25 mg tablets #Hyperlipidemia: Continue rosuvastatin 5 mg tablets, potentially consider repeating cholesterol panel at 3-month follow-up. Recent lipid panel demonstrated total cholesterol of 98, triglycerides of 173 and HDL of 31. Patient's LDL cholesterol is now 38. #Type 2 diabetes:Continue Mounjaro 5 mg once weekly, recent hemoglobin A1c in office today is 7.3%, continue metformin. #Anxiety: Currently being prescribed bupropion HCl ER 150 tablets daily..States that anxiety is under control at this time All questions have been answered to patient's satisfaction. Patient verbalized understanding of diagnosis and treatments explained. Advised to call sooner prior to next visit it any questions/concerns arise. Case discussed with Kevin CAR who reviewed the assessment and plan. Chart, medications, labs, vital signs reviewed. Dictation was accomplished with the use of [employer] voice recognition software, which is prone to medical misidentifications and grammatical errors. This are unintentional and the practitioner does try to identify and correct these, but some could still be present. Please do not hesitate to contact practitioner for clarification. 05/04/2025 Encounter for examination of blood pressure with abnormal findings (ICD-10 - Z01.31) Patient is welcomed to the practice. They are coming from Dr. Lee at [facility]. Last complete physical exam with labs 10/2024. Medications, medical history, allergies, surgeries, hospitalizations, family history, and social history were reviewed. Problem list updated. Cardiopulmonary and abdominal exam unremarkable. Patient will follow-up in office. All patient questions answered at this time. #Health maintenance: Up-to-date on flu, COVID, RSV vaccines, declines pneumonia vaccine, declines shingles due to believing insurance will not cover this, patient encouraged to contact insurance regarding this. Colonoscopy 2020 at [facility], reportedly on 10-year plan, will request records. #Hypertension: BP today elevated 140/90, repeat 152/84. 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 He states he has a BP cuff and monitor at home but does not take his BP. Patient encouraged to take his blood pressure twice daily with follow-up in 2 weeks to review. Continue losartan 100 mg daily and chlorthalidone 25 mg daily. He reports an allergy to amlodipine. #Type 2 diabetes: Will check A1c and follow-up in 2 weeks. Will check CMP and UA as well. Continue metformin 1000 mg twice daily, glipizide 2.5 mg daily, Rybelsus 7 mg daily. Consider transitioning to Mounjaro from Rybelsus on next visit. #Skin lesion: Initially began as a skin tag and has since became a raised, pink, scaly skin lesion for the past several years. Denies any changes to lesion for the past years. On exam, raised, pink, asymmetric skin lesion noted to right upper extremity, nontender to palpation, scaling in nature. Approximately 6 mm long x 3 mm wide. Referral placed to dermatology today. #Anxiety: States this is well-controlled. Continue bupropion 150 mg daily. #Obesity: Weight 231.9 pounds, BMI 38.59. Patient given information regarding weight management program and given new patient coordinator number, he states he will call. He will be a good candidate for Mounjaro rather than Rybelsus, will consider this at next visit. Lipid panel to be reviewed in 2 weeks as well. Plan Of Treatment Pending Test Test Name Order Date X ray : Spines, lumbar 2 views LIPID PANEL, STANDARD 05/04/2025 LIPID PANEL, STANDARD 07/02/2025 COMPREHENSIVE METABOLIC PANEL 05/04/2025 CBC (INCLUDES DIFF/PLT) 05/04/2025 URINALYSIS, COMPLETE 05/04/2025 HEMOGLOBIN A1c 05/04/2025 PPC Hemoglobin A1C 10/19/2025 PPC Hemoglobin A1C 07/02/2025 Next Appt Details Provider Name:VIVI CHAPPELL, 10:00:00 AM, [address], [place], [address], Insurance Providers Payer Name Payer Address Payer Phone Subscriber Number Group Number Insured Name Patient Relationship to Insured Coverage Start Date Coverage End Date [facility] [address] [place] [address] [phone] [id number] Jordi Bee Self - patient is the insured 2 Medical (General) History Medical History History ICD Code hearing problems Hypertension, essential I10 Type 2 diabetes mellitus treated without insulin E11.9 Anxiety, generalized F41.1 Hyperlipemia, idiopathic familial E78.5 Surgical History Surgery Date(Month/Year) right hip replacement 11/24/2014 arthritis fragment removal
[2025-10-29 17:44] VITALS: BP 136/79; PULSE 82; RESP 18; TEMP 36.6; O2SAT 94
== END 2025-10-29 17:44 | disposition home or self-care (01) ==
PROVIDERS: Emergency Provider Emergency Medicine
DX: S01.01XA Laceration without foreign body of scalp, initial encounter (principal); R51.9 Headache, unspecified; Y29.XXXA Contact with blunt object, undetermined intent, initial encounter; Y93.9 Activity, unspecified; Y92.9 Unspecified place or not applicable; Y99.8 Other external cause status; Z23 Encounter for immunization
CPT/HCPCS: 12001; 70450; 90471; 90715; 99282; 99284

== ENCOUNTER → 2025-10-29 13:33 | Outpatient (BNV) | payer OTHER, SELFPAY | PROVIDERS: Emergency Provider Emergency Medicine; Visit Provider Radiology Diagnostic Radiology | DX: S09.90XA Unspecified injury of head, initial encounter (principal); J32.2 Chronic ethmoidal sinusitis; J32.0 Chronic maxillary sinusitis | CPT/HCPCS: 70450 ==